=== PATIENT | male | born 1960 | race Caucasian/White ===

== ENCOUNTER 2018-04-08 16:06 | Emergency (ER) | payer BC, SELFPAY ==
[2018-04-08 16:07] VITALS: BP 143/75; PULSE 106; RESP 24; TEMP 36.6; O2SAT 99; BMI 28.5
--- NOTE | 2018-04-08 16:20 | CT_ITS ---
STUDY: CT ABDOMEN AND PELVIS WITH CONTRAST REASON FOR EXAM: Male, 57 years old. Right lower quadrant pain x2 days RADIATION DOSAGE (If Supplied By Facility): CTDIvol = ( 17.45 ) mGy, DLP = ( 1185.35 ) mGycm TECHNIQUE: Transaxial images were obtained from the dome of the diaphragm to the symphysis pubis without oral contrast. 100 ml of Isovue 300 contrast was administered. Sagittal and coronal images were reconstructed. Individualized dose optimization techniques were used for this CT. COMPARISON: None. FINDINGS: The visualized lung bases are unremarkable. The visualized portions of the heart are within normal limits. There is decreased attenuation of the liver consistent with steatosis. Normal gallbladder and extrahepatic biliary system. Normal spleen. Normal pancreas. Normal bilateral adrenal glands. Normal right kidney. Normal left kidney. Normal visualized stomach. Normal small intestine. There are multiple colonic diverticula consistent with diverticulosis. The appendix is visualized and appears normal. Appendix best seen on coronal recon image 65 Normal abdominal aorta. Normal inferior vena cava. Normal retroperitoneum. Normal urinary bladder. Small bilateral inguinal hernias noted. There are diffuse degenerative changes of the visualized lumbar spine. CT/Abdomen/Pelvis W IV Cont ONLY IMPRESSION: Fatty infiltration of liver, no discrete lesion. No CT evidence of an acute inflammatory process, normal appendix visualized. Colonic diverticulosis Electronically Signed: Kaleb Meyer MD at 17:55 EDT , Service support ,
--- NOTE | 2018-04-08 16:23 | ED.DCSUM_ITS ---
- ER Visit Summary Date of Service: 04/08/18 Chief Complaint: Right lower quadrant abdominal pain History of Present Illness: The patient is a 57 M senior past medical history. No prior abdominal surgeries. States last evening he had relatively sudden onset of right lower lateral abdominal pain. He denies any nausea, vomiting or. He denies any fever. No dysuria. No melena. No hematuria. No back pain. Nothing specifically makes the pain better or worse. He denies any prior history of similar pain. He denies any abdominal trauma. Physical Examination: Well-appearing middle-age male. Vital signs are afebrile. H EENT exam unremarkable. Neck nontender. Lungs clear to auscultation. Heart regular rhythm no murmur. Abdomen is soft. Nondistended. Normal bowel sounds. No hernias or masses. The only area that is tender is the right lower quadrant more laterally. Lateral to McBurney's point. Right upper quadrant unremarkable. There is no pulsatile mass. There are no peritoneal signs. Moving all 4 extremities. Neurovascular intact. Back nontender. No CVA tenderness. Neurologically is awake alert with no focal motor deficits. Test Results: CBC normal white count of 9. Normal normal normal creatinine and gap. Liver enzymes normal. Lipase normal. Urinalysis normal no blood no signs of infection. CT abdomen and pelvis with IV contrast only shows no acute abnormality. Fatty liver. Appendix is seen and appears normal this is read by the radiologist and reviewed by me. Multiple repeat exams the patient is doing well. Emergency Department Course and Treatment: Currently the patient does not want anything for pain or nausea. He will be given a liter of normal saline. Treatment Plan: Pain at 1900. Again no peritoneal signs. Patient myself and his all discussed all of his test results are comfortable being discharged home. Disposition: Discharge Impression: Acute right lower quadrant abdominal pain of uncertain etiology This note was generated with [employer] dictation software. It may contain incorrect words, spelling, and punctuation that were not noted in review of the chart prior to signing ED Disposition - Plan for ED Patient: Chief Complaint: Abd Pain Referrals: Care Physician,No Primary [Primary Care Provider] -
[2018-04-08] MEDS: 0.9% Normal Saline 1,000 ML 1000 ML IV (16:30)
[2018-04-08 16:47] LABS: Absolute Lymphocyte Count 2.44 X10^3/ul (0.83-4.51); Absolute Neutrophil Count 5.1 X10^3/uL (2.0-7.7); Basophil# 0.09 X10^3/uL; Eosinophil# 0.23 X10^3/uL; Eosinophils% 2.5 % (0-5); Hematocrit 44.9 % (40-54); Hemoglobin 15.6 g/dl (13.0-16.5); Lymphocyte # 2.44 X10^3/ul (4.0); Lymphocyte % 26.6 % (19-41); Mean Corp Hgb Conc 34.7 g/gl (32-36); Mean Corpuscular Hgb 33.8 pg (27.0-32.0); Mean Corpuscular Volume 97.2 fL (80-94); Mean Platelet Vol. 9.8 fl (6.2-12.0); Monocyte# 1.23 X10^3/uL; Monocyte% 13.4 % (0-10); Neutrophil # 5.13 X10^3/uL (2.7-7.7); Neutrophil % 56.1 % (47-70); Platelet Count 286 K/mm3 (150-450); RBC Distribution Width SD 45.8 fl (35.1-43.9); Red Blood Count 4.62 M/mm3 (4.6-6.2); White Blood Count 9.2 K/mm3 (4.4-11.0)
[2018-04-08 16:48] LABS: POSITIVE COUNT NO; POSITIVE DIFFERENTIAL NO; POSITIVE MORPHOLOGY NO
[2018-04-08 16:56] LABS: AST(SGOT) 16 U/L (15-37); Alanine Aminotransfer ALT/SGPT 43 U/L (16-61); Albumin, Serum 3.2 g/dL (3.2-5.0); Alkaline Phosphatase 115 U/L (45-117); Anion Gap 8 (5-15); BUN 11 mg/dL (7-18); BUN/Creat Ratio 11.5 RATIO (10-20); Bilirubin, Direct 0.09 mg/dL (0.00-0.30); Calcium,Total 8.4 mg/dL (8.5-10.1); Chloride 103 mmol/L (98-107); Creatinine, Serum 0.96 mg/dL (0.70-1.30); EST Glomerular Filtration Rate 86 mL/min (>60); Est Glom Filt Rate - Afr Amer 104 mL/min (>60); Estimated Creatinine Clearance 94.31 ml/min; Globulin 3.9 g/dL (2.2-4.2); Glucose 104 mg/dL (74-106); Lipase 81 U/L (73-393); Potassium 3.6 mmol/L (3.5-5.1); Protein, Total 7.1 g/dL (6.4-8.2); Sodium Level 137 mmol/L (136-145)
[2018-04-08 17:55] LABS: Bacteria 0 SEEN /hpf (None Seen); Mucous, Urine 0 SEEN /hpf (<or=2+); Red Blood Cells-Urine 0 SEEN /hpf (0-5); White Blood Cells 0 SEEN /hpf (0-5)
[2018-04-08 17:58] LABS: Color, Urine Yellow (Yellow); Glucose, Dipstick Normal (Normal); Ketone-Dipstick Negative (Negative); Leukocyte Esterase-Dipstick Negative /ul (Negative); Nitrite-Dipstick Negative (Negative); Occult Blood-Urine Negative /ul (Negative); Protein-Dipstick Negative (Negative); Urine Bilirubin Dipstick Negative (Negative); Urine Clarity Clear (Clear); Urine Urobilinogen Normal (Normal)
[2018-04-08 18:06] VITALS: BP 142/108; PULSE 76; RESP 16; O2SAT 96
[2018-04-08 18:14] LABS: Squamous Epithelial Cells - UA 0-5 SEEN /hpf (0-5)
--- NOTE | 2018-04-08 19:04 | ED.DEP ---
ED Disposition - Plan for ED Patient: Disposition: Home or Assisted Living Chief Complaint: Abd Pain Instructions: ED Abdominal Pain Unkn Cause Referrals: Christian Sue MD [STAFF PHYSICIAN] - 3-5 Days if not improving Additional Instructions: Tylenol and/or Motrin for pain. Return to ER if feeling a lot worse or follow-up with a primary care physician.
[2018-04-08 19:15] VITALS: BP 135/97; PULSE 75; RESP 16; O2SAT 96
== END 2018-04-08 19:16 | disposition home or self-care (01) ==
PROVIDERS: Emergency Provider Emergency Medicine
DX: R10.31 Right lower quadrant pain (principal); K76.0 Fatty (change of) liver, not elsewhere classified; Z72.0 Tobacco use
CPT/HCPCS: 74177; 80048; 80076; 81001; 83690; 85025; 96360; 99283; J7030; Q9967

== ENCOUNTER 2018-04-09 16:11 | Observation (INO) | payer BC, SELFPAY ==
[2018-04-09 16:11] VITALS: BP 140/90; PULSE 105; RESP 18; TEMP 36.8; O2SAT 97
--- NOTE | 2018-04-09 16:35 | RAD_ITS ---
STUDY: X-RAY CHEST REASON FOR EXAM: Male, 57 years old. Right-sided abdominal pain TECHNIQUE: Single AP portable view of the chest. COMPARISON: 2014 FINDINGS: There are interstitial fibrotic changes of the lungs. There is no demonstrated pleural abnormality. Normal size heart. Normal mediastinum and [place]. Normal visualized pulmonary arteries. Normal visualized aortic arch and descending thoracic aorta. Normal visualized thoracic spine. Normal visualized ribs, clavicles, and shoulders. There is no demonstrated abnormality of the visualized soft tissue structures of the upper abdomen. RAD/Chest 1 View (Portable) IMPRESSION: Chronic interstitial changes, no superimposed acute pulmonary process Electronically Signed: Kaleb Meyer MD at 16:44 EDT , Service support ,
[2018-04-09] MEDS: 0.9% Normal Saline 1,000 ML 150 ML IV ×2 (16:43→22:23)
[2018-04-09] MEDS: Ondansetron 4 MG/2 ML Vial IV ×2 (16:43→18:23)
[2018-04-09] MEDS: HYDROmorphone 1 MG/ML Syringe IV ×4 (16:44→22:34)
--- NOTE | 2018-04-09 16:52 | ED.VISSUMM ---
- ER Visit Summary Date of Service: 04/09/18 Chief Complaint: [Abdominal pain] History of Present Illness: The patient is a 57 M [presents the emergency department complaint 3-day history of abdominal discomfort. Patient rates pain currently an 8 or 9 out of 10 and it has been continuous. Patient was seen in the emergency department last evening for the same complaint and had lab workup including CT scan of the abdomen pelvis which was unremarkable. Patient denies any nausea or vomiting. Patient denies any diarrhea. He denies any blood in his stool or black tarry stool. Patient denies urinary symptoms. The pain is pleuritic and worse with movement and deep breathing. Patient has had recent travel over the last several months does work as a ready mix truck driver. Patient also is a heavy smoker. He has no history of PE or DVT.] Patient describes the pain as right midabdomen and at times states that he feels like there is a ball there. Physical Examination: [HEENT-PERRLA, EOMI. Cranial nerves II through XII grossly intact. TMs clear. Mucous membranes moist. No adenopathy. Cardiovascular-regular rate and rhythm without murmur or ectopy Lungs-clear to auscultation, chest wall stable without crepitus or subcu emphysema Abdomen-normoactive bowel sounds, soft. Patient does have tenderness over the right lower rib cage on exam as well as the right oblique musculature. I do not palpate any masses. There is no rebound, rigidity, or perineal signs. Negative Wolfe sign. Extremities-intact ?4, normal range of motion, normal pulses, atraumatic] Test Results: [Chest x-ray obtained was unremarkable.] CBC with differential obtained for white count 9.2, hemoglobin 15, hematocrit 44, platelets 268. Chemistries unremarkable. LFTs normal. Lipase was 78. D-dimer was normal at 0.28. CT scan of the abdomen and pelvis with IV and p.o. contrast was read by radiology as normal appendix and persistent mild to moderate stool in the colon there is a thickened appearance to the section of the distal descending and sigmoid colon which could potentially represent atypical thickening potentially mild colitis. There is diverticulosis but no evidence of diverticulitis. There were degenerative changes of the thoracolumbar spine. And mild thickening of the esophagus. Emergency Department Course and Treatment: [Patient was medicated with Dilaudid and Zofran x3 and patient continues to complain of pain. Treatment Plan: [Admit for pain control] Disposition: [Admit] Impression: [Abdominal pain-etiology uncertain] This note was generated with [employer] dictation software. It may contain incorrect words, spelling, and punctuation that were not noted in review of the chart prior to signing ED Disposition - Plan for ED Patient: Chief Complaint: Abd Pain Referrals: Care Physician,No Primary [Primary Care Provider] -
[2018-04-09 16:53] VITALS: BP 156/88; PULSE 102; RESP 13; O2SAT 95
[2018-04-09 17:05] LABS: Absolute Lymphocyte Count 2.11 X10^3/ul (0.83-4.51); Absolute Neutrophil Count 6.4 X10^3/uL (2.0-7.7); Basophil# 0.06 X10^3/uL; Basophil% 0.7 % (0-1); Eosinophil# 0.08 X10^3/uL; Eosinophils% 0.9 % (0-5); Hematocrit 44.1 % (40-54); Hemoglobin 15.2 g/dl (13.0-16.5); Lymphocyte # 2.11 X10^3/ul (4.0); Lymphocyte % 23.1 % (19-41); Mean Corp Hgb Conc 34.5 g/gl (32-36); Mean Corpuscular Hgb 33.8 pg (27.0-32.0); Mean Platelet Vol. 9.8 fl (6.2-12.0); Monocyte# 0.52 X10^3/uL; Monocyte% 5.7 % (0-10); Neutrophil # 6.35 X10^3/uL (2.7-7.7); Neutrophil % 69.3 % (47-70); Platelet Count 268 K/mm3 (150-450); RBC Distribution Width SD 46.6 fl (35.1-43.9); White Blood Count 9.2 K/mm3 (4.4-11.0)
[2018-04-09 17:06] LABS: POSITIVE COUNT NO; POSITIVE DIFFERENTIAL NO; POSITIVE MORPHOLOGY NO
[2018-04-09 17:20] LABS: ALB/GLOB Ratio 0.8 RATIO (0.9-2.4); AST(SGOT) 17 U/L (15-37); Alanine Aminotransfer ALT/SGPT 43 U/L (16-61); Albumin, Serum 3.1 g/dL (3.2-5.0); Alkaline Phosphatase 105 U/L (45-117); Anion Gap 8 (5-15); BUN 9 mg/dL (7-18); BUN/Creat Ratio 8.5 RATIO (10-20); Calcium,Total 8.2 mg/dL (8.5-10.1); Chloride 105 mmol/L (98-107); Creatinine, Serum 1.06 mg/dL (0.70-1.30); EST Glomerular Filtration Rate 77 mL/min (>60); Est Glom Filt Rate - Afr Amer 93 mL/min (>60); Estimated Creatinine Clearance 85.41 ml/min; Globulin 3.7 g/dL (2.2-4.2); Glucose 148 mg/dL (74-106); Lipase 78 U/L (73-393); Potassium 3.8 mmol/L (3.5-5.1); Protein, Total 6.8 g/dL (6.4-8.2); Sodium Level 137 mmol/L (136-145)
[2018-04-09 17:24] LABS: D-Dimer Quantitative (DVT/PE) 0.28 FEU/ug/m (0.27-0.49)
--- NOTE | 2018-04-09 18:02 | CT_ITS ---
STUDY: CT ABDOMEN AND PELVIS WITH CONTRAST REASON FOR EXAM: Male, 57 years old. Lower quadrant pain for 4 days RADIATION DOSAGE (If Supplied By Facility): CTDIvol = ( 16.41 ) mGy, DLP = ( 1235.59 ) mGycm TECHNIQUE: Transaxial images were obtained from the dome of the diaphragm to the symphysis pubis without oral contrast. 100 ml of Isovue 300 contrast was administered. Sagittal and coronal images were reconstructed. Individualized dose optimization techniques were used for this CT. COMPARISON: April 08, 2018 CT scan abdomen and pelvis FINDINGS: There is trace lower lobe atelectasis. The visualized portions of the heart are within normal limits. There is hepatic steatosis with sparing. There is a 3 mm low attenuation within the left hepatic lobe. There is a low attenuation within the posterior aspect of the right hepatic lobe measuring 8.3 mm. Normal gallbladder and extrahepatic biliary system. Normal spleen. Normal pancreas. Normal bilateral adrenal glands. Normal right kidney. Normal left kidney. There is mild thickening of the distal esophagus. The stomach is distended with food contents. There mildly distended loops of small bowel. There is mild to moderate stool in the colon. There is focal mucosal thickening within the distal descending colon image #101. There is diverticulosis without evidence of diverticulitis. The appendix is retrocecal the tip of the appendix is next to the right kidney. There is no evidence of appendicitis. There is partial calcification of the aorta. Normal inferior vena cava. Normal retroperitoneum. Normal urinary bladder. Normal visualized prostate gland. There are bilateral fatty inguinal hernias. There is multilevel spondylosis. At the level of L4-L5 there is a broad disc bulge mild neural foramina narrowing mild central stenosis. At L5-S1 there is a broad disc osteophyte with mild to moderate neural foraminal narrowing no significant central stenosis. CT/Abdomen/Pelvis WITH Contrast IMPRESSION: There is persistent mild to moderate stool in the colon. There is a thickened appearance of the section of the distal descending/sigmoid colon which could potentially represent atypical thickening potentially mild colitis. There is diverticulosis but without definitive evidence of inflammatory change of the diverticula. Recommend follow-up colonoscopy. Hepatic steatosis benign-appearing hepatic cysts. No evidence of appendicitis. The appendix is retrocecal with the tip near the right kidney. Degenerative change of the thoracolumbar spine. Mild thickening of the esophagus. Consider esophagitis. Electronically Signed: Elle Murrell MD at 19:47 EDT Tel , Service support ,
[2018-04-09 18:27] VITALS: BP 145/93; PULSE 84; RESP 18; O2SAT 96
[2018-04-09 20:06] VITALS: BP 135/97; PULSE 84; RESP 16; O2SAT 97
--- NOTE | 2018-04-09 20:19 | HP.PCM_ITS ---
Problem List (1) Abdominal pain Status: Acute Qualifiers: Abdominal location: right upper quadrant Qualified Code(s): R10.11 - Right upper quadrant pain (2) Tobacco use Status: Chronic (3) Obesity (BMI 30.0-34.9) Status: Chronic History of Present Illness Date of Admission: 04/09/18 Chief Complaint: R sided abd pain The patient is a 57 y/o M w/ PMHx: Tobacco use, Obesity who presents to the [facility] ED on 04/09/18 with history of ongoing R sided abdominal pain without associated nausea, emesis or diarrhea, rated 8-9/10 upon ED presentation, noted to be continuous but worsening since Sunday, notes severe constant, sharp like a stitch in your side from running w/ ED visit the evening prior w/ similar complaints and unremarkable CT A/P at that time. He does note that sometimes the pain is worse w/ deep inspiration and sometimes w/ certain movements. He denies any blood in his stool. He notes continued oral food intake without any worsened symptoms he believes but not best food historian and diet very high in fat. In the ED work-up included T 98.2, heart rate 105-->84, BP 140/90--> 135/97, BC with WBC 9.2, hemoglobin 15.2, platelet 260 without shift, unremarkable d-dimer, CMP with glucose 148 otherwise not marketed appearing, lipase of 78, Chest x-ray with chronic changes, CT A/P without IV contrast w/ trace lower lobe atelectasis, hepatic steatosis with sparing, 3 mm low attenuation within the left hepatic lobe, low-attenuation within the posterior aspect the right hepatic lobe measuring 8.3 mm, normal gallbladder and extra hepatic biliary, persistent mild to moderate stool in the colon, thickened appearance section of the distal descending/sigmoid colon possibly representing atypical thickening potentially mild colitis, diverticulosis without definitive evidence of inflammatory change of the diverticula, mild thickening of the esophagus. In the ED patient certified novell administrator Zofran, morphine, several rounds of Dilaudid in addition to normal saline. Past Medical History Past Medical History (Chronic Problems): Chronic Problems Tobacco use (Chronic) Obesity (BMI 30.0-34.9) (Chronic) Allergies No Known Allergies Allergy (Verified 04/09/18 16:13) Home Medications: Ambulatory Orders Medication Instructions Recorded NK 09/24/18 Surgical History: - - Right knee arthroscopic meniscus repair. Psychiatric History: No pertinent psych hx Lives: Spouse/ Significant Other Smoking Status: Current every day smoker - 1.5-2 pack per day Tobacco Use: Cigarettes Alcohol: None Drugs: None - *Family History Maternal History Items: - - Patient notes a maternal family history of stroke and diabetes. Paternal History Items: - - Patient notes a paternal family history of prostate cancer. Review of Systems Constitutional: Reports: Fatigue. Denies: Chills, Fever, Weight Change HEENT: Denies: Head Aches, Sinus Congestion, Sinus Drainage Cardiovascular: Denies: Chest Pain, Palpitations Respiratory: Reports: Pleuritic Pain. Denies: Cough, Hemoptysis, Shortness of Breath, Shortness of breath at rest, Shortness of breath upon exertion, Sputum production, Wheezing Gastrointestinal: Reports: Abdominal Pain. Denies: Constipation, Diarrhea, Hematemesis, Nausea, Melena, Vomiting Genitourinary: Denies: Dysuria Musculoskeletal: Denies: Joint Pain, Joint Tenderness Skin: Denies: Rash, Wounds Neurological: Denies: Numbness, Tingling, Focal weakness Psychiatric: Denies: Anxiety, Depression, Homicidal Ideations, Suicidal Ideations Hematologic/ Lymphatic: Denies: Easy Bruising, Easy Bleeding VTE Information - Inpt Only VTE Present on Admission: No VTE Mechan Device Prophylaxis: SCD's VTE Pharm Prophylaxis ordered?: Yes Patient Problems: Active and Suspected Problems Abdominal pain (Acute) Subjective: Seated upright in the ED bed, notes ongoing discomfort to the right upper quadrant region. Objective: Physical Examination: General: awake, alert, oriented x 3 and cooperative, seated upright in the ED bed in no apparent distress but uncomfortable appearing. Skin: normal color, turgor, no icterus, cyanosis. HEENT: AT/NC, EOMI, PERRLA, mildly dry MM, no carotid bruits or JVD noted. Lungs: Diffusely diminished breath sounds, greater bilateral bases, poor effort, no rales, ronchi or wheezing. Heart: Regular rate and rhythm; no gallop, rub audible. Abdomen: soft, obese, difficulty with examination as tensing abdominal musculature secondary to discomfort, right upper quadrant pain to palpation, voluntary guarding, difficult to assess rebound, mildly hyperactive bowel sounds, difficult to assess HSM secondary to acute presentation. Extremities: no cyanosis, clubbing, or edema. Neurological: patient awake, alert, oriented x 3; cognitive function intact; pupils equally reactive to light and accomodation; cranial nerves II-XII grossly normal, moving all 4 extremities, no focal deficits, strength moderately globally decreased secondary to acute presentation. Psychiatric: affect appears normal, no acute evidence of depressive or anxiety feelings. - Physical Exam Vital Signs Temp Pulse Resp BP Pulse Ox 98.2 F 84 16 135/97 H 97 04/09/18 16:11 04/09/18 20:06 04/09/18 20:06 04/09/18 20:06 04/09/18 20:06 Oxygen Delivery Method Room Air Weight: 221 lb 9.033 oz Body Mass Index (BMI) 30.0 Laboratory Tests Past 24 Hrs 04/09/18 04/09/18 04/09/18 16:46 16:46 16:46 WBC 9.2 RBC 4.50 L Hgb 15.2 Hct 44.1 MCV 98.0 H MCH 33.8 H MCHC 34.5 RDW 13.0 RDW Differential 46.6 H Plt Count 268 MPV 9.8 Immature Gran % (Auto) 0.300 Neut % (Auto) 69.3 Lymph % (Auto) 23.1 Blaine % (Auto) 5.7 Eos % (Auto) 0.9 Baso % (Auto) 0.7 Absolute Neuts (auto) 6.4 Absolute Lymphs (auto) 2.11 Total Counted Not Reportable D-Dimer Quant (PE/DVT) 0.28 Sodium 137 Potassium 3.8 Chloride 105 Carbon Dioxide 24.0 Anion Gap 8 BUN 9 Creatinine 1.06 Estim Creat Clear Calc 85.41 Est GFR (MDRD) Af Amer 93 Est GFR (MDRD) Non-Af 77 BUN/Creatinine Ratio 8.5 L Glucose 148 H Calcium 8.2 L Total Bilirubin 0.40 AST 17 ALT 43 Alkaline Phosphatase 105 Total Protein 6.8 Albumin 3.1 L Globulin 3.7 Albumin/Globulin Ratio 0.8 L Lipase 78 Assessment/Plan All Active Problems Abdominal pain (Acute) The patient is a 57 y/o M w/ PMHx: Tobacco use, Obesity who presents to the [facility] ED on 04/09/18 with history of ongoing R sided abdominal pain without associated nausea, emesis or diarrhea, rated 8-9/10 upon ED presentation, noted to be continuous but worsening since Sunday, notes severe constant, sharp like a stitch in your side from running w/ ED visit the evening prior w/ similar complaints and unremarkable CT A/P at that time. (1) Atypical Abdominal Pain, RUQ: ED work-up included T 98.2, heart rate 105-->84, BP 140/90--> 135/97, BC with WBC 9.2, hemoglobin 15.2, platelet 260 without shift, unremarkable d-dimer, CMP with glucose 148 otherwise not marketed appearing, lipase of 78, Chest x-ray with chronic changes, CT A/P without IV contrast w/ trace lower lobe atelectasis, hepatic steatosis with sparing, 3 mm low attenuation within the left hepatic lobe, low-attenuation within the p osterior aspect the right hepatic lobe measuring 8.3 mm, normal gallbladder and extra hepatic biliary, persistent mild to moderate stool in the colon, thickened appearance section of the distal descending/sigmoid colon possibly representing atypical thickening potentially mild colitis, diverticulosis without definitive evidence of inflammatory change of the diverticula, mild thickening of the esop hagus. Will admit to [facility], maintain NPO, obtain RUQ US, maintain on IV PPI, hold on abx initiation given atypical presentation, afebrile, no marked WBC elevation or shift, will obtain Surgery consultation, continue PRN oral and IV Pain regimen, PRN antiemetics if onset. (2) Elevated BP without HTN Dx: Denies any history, may be secondary to pain, elevated mild SBP but notable DBP elevations, continue to monitor, add oral agent if remains above goal with pain control. PRN lopressor. (3) Tobacco Abuse: Encouraged cessation, inpatient consultation per RT, NR if desired. (4) Obesity: Weight loss and lifestyle changes encouraged, nutrition consultation for education and teaching given the notable high fat intake of his current diet. (5) Hyperglycemia: Admission glucose 148, HgBA1c pending. (6) GERD, ? Esophagitis: CT without IV contrast noting mild thickening of the esophagus, IV PPI. (7) DVT Prophylaxis: SCDs, lovenox. Code Visit OBSV E&M: [id number] Initial observation care L3
[2018-04-09 21:29] VITALS: BMI 29.9
[2018-04-09 21:50] VITALS: BP 133/92; PULSE 78; RESP 16; TEMP 36.9; O2SAT 95
--- NOTE | 2018-04-09 21:55 | US_ITS ---
STUDY: ABDOMINAL ULTRASOUND - RIGHT UPPER QUADRANT REASON FOR VISIT: Male, 57 years old. Right-sided abdominal pain TECHNIQUE: Ultrasound evaluation of the right upper quadrant was performed with real-time and static seymour-scale imaging. TECHNICAL QUALITY: Adequate. COMPARISON: CT scan abdomen and pelvis and April 09, 2018, April 08, 2018. FINDINGS: Liver: The liver measures 19.2 cm. There is increased echogenicity consistent with fatty infiltration. The bile ducts are within normal limits. There is hepatic color flow. The direction of portal flow is hepatopetal. There is no demonstrated mass lesion. Gallbladder: Normal distended gallbladder. The gallbladder wall measures 2 mm. There is a negative sonographic Wolfe's sign. There is no pericholecystic fluid. There are no gallstones. Common Bile Duct (C.B.D.): The common bile duct measures 5 mm. Pancreas: Normal size of the head, body of the pancreas. There is normal echogenicity of the pancreas. There is no demonstrated pancreatic mass or cyst. The tail the pancreas is not visualized. Right Kidney: Normal size of the right kidney. The right kidney measures 12.7 x 5.1 x 4.5 cm. Normal renal cortex. The right cortex measures 2 cm. There is no demonstrated renal mass or cyst. There is no right hydronephrosis. US/Gallbladder IMPRESSION: Hepatic steatosis. Hepatic enlargement.. The too small to characterize probable liver cysts seen on today's CT are not well seen on ultrasound. These measure 3 and 8 mm. No evidence of cholelithiasis or findings to suggest cholecystitis. Electronically Signed: Elle Murrell MD at 23:49 EDT Tel , Service support ,
[2018-04-09] MEDS: 0.9% NaCl Peripheral Flush Adult/Peds IV (22:34)
[2018-04-09 23:25] VITALS: O2SAT 93
[2018-04-09] MEDS: oxyCODONE 5 MG Tablet PO (23:32)
[2018-04-10] VITALS (11 sets, daily range): BP systolic 90–136; BP diastolic 51–95; PULSE 68–81; RESP 16–18; TEMP 36.3–37.1; O2SAT 84–98; BMI 29.9
[2018-04-10] MEDS: 0.9% Normal Saline 1,000 ML 150 ML IV ×4 (05:44→23:55)
[2018-04-10] MEDS: HYDROmorphone 1 MG/ML Syringe IV (05:50)
[2018-04-10] MEDS: Ketorolac 30 MG/ML Syringe IV (06:15)
[2018-04-10] MEDS: Acetaminophen 325 MG Tablet 650 MG PO (06:16)
[2018-04-10 06:17] LABS: Absolute Lymphocyte Count 2.26 X10^3/ul (0.83-4.51); Absolute Neutrophil Count 4.7 X10^3/uL (2.0-7.7); Basophil# 0.09 X10^3/uL; Basophil% 1.1 % (0-1); Eosinophil# 0.16 X10^3/uL; Hematocrit 40.8 % (40-54); Hemoglobin 13.8 g/dl (13.0-16.5); Lymphocyte # 2.26 X10^3/ul (4.0); Lymphocyte % 28.1 % (19-41); Mean Corp Hgb Conc 33.8 g/gl (32-36); Mean Corpuscular Hgb 33.2 pg (27.0-32.0); Mean Corpuscular Volume 98.1 fL (80-94); Mean Platelet Vol. 9.5 fl (6.2-12.0); Neutrophil # 4.71 X10^3/uL (2.7-7.7); Neutrophil % 58.6 % (47-70); Platelet Count 238 K/mm3 (150-450); RBC Distribution Width SD 46.3 fl (35.1-43.9); Red Blood Count 4.16 M/mm3 (4.6-6.2)
[2018-04-10 06:21] LABS: POSITIVE COUNT NO; POSITIVE DIFFERENTIAL NO; POSITIVE MORPHOLOGY NO
[2018-04-10 06:39] LABS: Anion Gap 5 (5-15); BUN 10 mg/dL (7-18); BUN/Creat Ratio 10.8 RATIO (10-20); Calcium,Total 7.8 mg/dL (8.5-10.1); Chloride 104 mmol/L (98-107); Creatinine, Serum 0.92 mg/dL (0.70-1.30); EST Glomerular Filtration Rate 90 mL/min (>60); Est Glom Filt Rate - Afr Amer 109 mL/min (>60); Estimated Creatinine Clearance 98.41 ml/min; Glucose 98 mg/dL (74-106); Potassium 3.9 mmol/L (3.5-5.1); Sodium Level 137 mmol/L (136-145)
--- NOTE | 2018-04-10 13:29 | NURSING ---
report called to aC at this time.
--- NOTE | 2018-04-10 14:00 | IMM_PTH ---
PATIENT: SHELLEY NAYAK LOC: 3 U#:[id number] AGE/SX: 57/M ROOM: CA323 RE04/09/[address]: Dr. Rafael Ramirez DO : 1960 BED: 1 DIS: 04/11/2018 SPEC #: [id number] RECD: 04/11/18 14:38 STATUS: SOUMiguel Angel REQ #: [id number] KARLIE: 04/10/18 14:[address]: Donovan Peck DEPT: IMMUNOHISTOCHEMISTRY RECD BY: Mary Ann Cain ENTERED: 04/11/18 14:39 SP TYPE: IMMUNO OTHR DR: MD Dr. Rafael Salinas DO Dr. Richard Guttman, MD No Primary Care Phys Tissues: B - Stomach, NOS C - Stomach, NOS D - Esophageal mucous membrane Procedures: H Pylori (initial) P53 (initial) BCL-2 (add) BCL-6 (add) CD10 (add) CD20 (add) CD23 (add) CD3 (add) CD43 (add) CD45 (add) CD5 (add) CD79A (add) CYCLIN (add) KI-67 (add) Comments: @ Ordering doctor for H.PYLORI edited from to @ by MONA at 04/11/18 1451 @ Submitting doctor edited from to @ by MONA at 04/11/18 1458 PHYSICIAN & INSTITUTION [facility] [address] [place] [id number] SPECIMEN INFORMATION: Tissue Source: B - Antrum biopsy, C - Gastric polyp, D - GE junction Clinical Info: Abdomen pain Specimen Number: [id number] B, C & D CPT code: 33517 x3, 11563 x12 METHODOLOGY: Deparaffinized sections of prefer/formalin-fixed tissue or PAP/DQ stained slides are incubated with monoclonal/polyclonal antibodies/oligonucleotide probes. Localization is made via biotin free immunoperoxidase method. Appropriate controls are performed and reacted as expected. Results on target cell population are indicated in the following table: RESULTS: ANTIBODY / CLONE RESULT Block B H Pylori (polyclonal) negative Block C CD3 (PS1) positive CD5 (SP10) positive CD20 (L26) positive CD43 (L60) positive CD45 (RP2/18) positive CD79a (11E3) positive CD10 (56C6) negative CD23 (1B12) negative (positive in germinal center) BCL-2 (bcl-2/100/D5) positive BCL-6 (AW082U/A8) negative Cyclin D1/BCL-1 (SP4) negative Ki-67 (30-9) positive, moderate H Pylori (polyclonal) negative Block D P53 (DO-7) negative These tests were developed and their performance characteristics determined by [facility]. They may not have been cleared or approved by the U.S. Food and Drug Administration. The FDA has determined that such clearance or approval is not necessary. INTERPRETATION: B. Antrum biopsy: Negative for Helicobacter pylori organisms. C. Gastric polyp: Lymphoid aggregate, polytypic in nature, favor benign. Negative for Helicobacter pylori organisms. D. GE junction: Indefinite for dysplasia. SJ:rey 04/15/18
--- NOTE | 2018-04-10 14:00 | EGD_PTH ---
PATIENT: SHELLEY NAYAK LOC: MS3 U#:[id number] AGE/SX: 57/M ROOM: MO323 RE04/09/[address]: Dr. Rafael Ramirez DO : 1960 BED: 1 DIS: 04/11/2018 SPEC #: [id number] RECD: 04/11/18 11:14 STATUS: QUINTIN REMorro #: [id number] KARLIE: 04/10/18 14:[address]: Donovan Peck DEPT: SURGICAL PATHOLOGY RECD BY: Trinity Chino ENTERED: 04/11/18 11:46 SP TYPE: EGD [facility]OPSY [facility] DR: MD Dr. Rafael Salinas, DO No Primary Care Phys Tissues: A - Duodenum, NOS B - Gastric mucous membrane C - Gastric mucous membrane D - Gastric mucous membrane Procedures: Special Stain Group II Surgery Specimen Level IV Alcian Blue/PAS (control) HEADER OPERATION: EGD ([facility]) PRE-OP DIAGNOSIS: Abdominal pain TISSUE SUBMITTED: A. Duodenum biopsy, B. Antrum biopsy, C. Gastric polyp, rule out inflammatory polyp, D. GE junction, rule out Slater's MICROSCOPIC DIAGNOSIS A. Duodenum, biopsy: A fragment of duodenal mucosa with Vadim gland hyperplasia. B. Antrum, biopsy: Mild gastritis. C. Gastric polyp, biopsy: Mild gastritis. Lymphoid aggregates, polytypic in nature, favor benign. See comment. D. 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 Indefinite for dysplasia. See comment. SJ:rg 04/12/18 COMMENT B. The results of immunohistochemistry for Helicobacter pylori will be reported separately ([id number]). C. The results of immunohistochemistry for Helicobacter pylori will be reported separately ([id number]). D. Immunohistochemistry ([id number]) supports the above diagnosis. Alcian blue/PAS stain with matched control is used in the evaluation of the specimen. MICROSCOPIC DESCRIPTION Slides are reviewed. B. The specimen shows fragments of gastric mucosa with chronic inflammatory cell infiltrates in the lamina propria consisting of lymphocytes and plasma cells, consistent with mild chronic gastritis. C. The specimen shows fragments of gastric mucosa with chronic inflammatory cell infiltrates in the lamina propria consisting of lymphocytes and plasma cells, consistent with mild chronic gastritis. Multiple lymphoid aggregates are noted. Immunohistochemistry ([id number]) shows lymphoid aggregates to be polytypic in nature, favor benign. GROSS DESCRIPTION A - Received in fixative is one container labeled with the patient's name and designated duodenum biopsy. The specimen consists of one irregular fragment of light angel soft tissue that measures 0.3 x 0.3 x 0.1 cm. The specimen is totally submitted in one cassette. B - Received in fixative is one container labeled with the patient's name and designated antrum biopsy. The specimen consists of one irregular fragment of light angel soft tissue that measures 0.4 x 0.4 x 0.1 cm. The specimen is totally submitted in one cassette. C - Received in fixative is one container labeled with the patient's name and designated gastric polyp. The specimen consists of one irregular fragment of light angel soft tissue that measures 0.3 x 0.3 x 0.1 cm. The specimen is totally submitted in one cassette. D - Received in fixative is one container labeled with the patient's name and designated GE junction biopsy. The specimen consists of one irregular fragment of light angel soft tissue that measures 0.4 x 0.2 x 0.1 cm. The specimen is totally submitted in one cassette. / SJ:rg 04/11/18 TC:3 [facility]: [id number] x4, [id number]
--- NOTE | 2018-04-10 15:00 | CON.PCM_ITS ---
Reason for Consult Date of Consultation: 04/10/18 History of Present Illness: The patient is a 57 year old M with right upper quadrant/lateral abdomen pain. The pain was constant and severe, non radiating, not seemingly started after eating or any other inciting events. The pain started Sunday night. he did not feel the pain was related to eating food, but the pain occurred hours after eating at [employer] - a meal which consisted of a submarine sandwich and fried mushrooms. the pain persisted over the weekend. He presented to the emergency department on the evening of April 09. Pain was persistently severe. the pain was not truly localized under the right costal margin, but more laterally. He complains of no radiation of the back or shoulder. He had laboratory studies which were unremarkable. he underwent a CT scan of the abdomen and pelvis which was unremarkable in the hepatobiliary area. there were felt to be areas of thickening in the distal esophagus and there were felt to be areas of thickening in the sigmoid colon. He had an ultrasound of the right upper quadrant, which was unremarkable. the patient smokes over 1 pack of cigarettes per day. Past Medical History Past Medical History (Chronic Problems): Chronic Problems Tobacco use (Chronic) Obesity (BMI 30.0-34.9) (Chronic) Allergies No Known Allergies Allergy (Verified 04/09/18 16:13) Home Medications: Ambulatory Orders Medication Instructions Recorded Aspirin/Acetaminophen/Caffeine 1 each PO DAILY PRN 04/09/18 [[employer] Ex-Str Powder Packet] Cyclobenzaprine [Flexeril] 5 mg PO TID PRN PRN 04/09/18 Ibuprofen [Advil] 200 mg PO Q6H PRN PRN 04/09/18 Surgical History: - - Right knee arthroscopic meniscus repair. Psychiatric History: No pertinent psych hx Lives: Spouse/ Significant Other Smoking Status: Current every day smoker Tobacco Use: Cigarettes Alcohol: None Drugs: None - *Family History Maternal History Items: - - Patient notes a maternal family history of stroke and diabetes. Paternal History Items: - - Patient notes a paternal family history of prostate cancer. Review of Systems Constitutional: Denies: Chills, Fever, Weight Change HEENT: Denies: Head Aches, Sinus Congestion, Sinus Drainage Cardiovascular: Denies: Chest Pain, Palpitations Respiratory: Denies: Cough, Shortness of breath at rest, Sputum production Gastrointestinal: Reports: Abdominal Pain. Denies: Nausea, Vomiting Genitourinary: Denies: Dysuria Musculoskeletal: Denies: Joint Pain, Joint Tenderness Skin: Denies: Rash, Wounds Neurological: Denies: Numbness, Tingling, Focal weakness Psychiatric: Denies: Anxiety, Depression, Homicidal Ideations, Suicidal Ideations Hematologic/ Lymphatic: Denies: Easy Bruising, Easy Bleeding Patient Problems: Active and Suspected Problems Abdominal pain (Acute) - Physical Exam General: Alert, Oriented x3, Cooperative HEENT: Atraumatic, PERRLA, EOMI, Normocephalic Neck: Supple, No JVD, Negative Carotid Bruits Lungs: Clear to auscultation, Normal air movement Cardiovascular: Regular rate, No murmurs Abdomen: Bowel Sounds Present, Soft, Non Tender - in the right upper quadrant- relative point tenderness in the far right lateral abdominal wall area. Negative Wolfe sign Extremities: No edema, Capillary Refill Less than 3 Seconds Skin: No rashes, No breakdown Musculoskeletal: No Tenderness to Palpation of Joints or Extremities Neurological: Cranial nerves II-XII grossly intact Psych/Mental Status: Normal Affect, Appropriate Vital Signs Temp Pulse Resp BP Pulse Ox 97.6 F L 72 18 132/83 H 97 04/10/18 13:06 04/10/18 13:06 04/10/18 13:06 04/10/18 13:06 04/10/18 13:06 Oxygen Delivery Method Room Air Weight: 100.4 kg Body Mass Index (BMI) 29.9 Intake and Output for Last 24 Hours 04/08/18 04/09/18 04/10/18 23:59 23:59 23:59 Intake Total 2320 / 2320 Output Total 930 / 930 Balance 1390 / 1390 Laboratory Tests Past 24 Hrs 04/09/18 04/09/18 04/09/18 16:46 16:46 16:46 WBC 9.2 RBC 4.50 L Hgb 15.2 Hct 44.1 MCV 98.0 H MCH 33.8 H MCHC 34.5 RDW 13.0 RDW Differential 46.6 H Plt Count 268 MPV 9.8 Immature Gran % (Auto) 0.300 Neut % (Auto) 69.3 Lymph % (Auto) 23.1 [place] % (Auto) 5.7 Eos % (Auto) 0.9 Baso % (Auto) 0.7 Absolute Neuts (auto) 6.4 Absolute Lymphs (auto) 2.11 Total Counted Not Reportable D-Dimer Quant (PE/DVT) 0.28 Sodium 137 Potassium 3.8 Chloride 105 Carbon Dioxide 24.0 Anion Gap 8 BUN 9 Creatinine 1.06 Estim Creat Clear Calc 85.41 Est GFR (MDRD) Af Amer 93 Est GFR (MDRD) Non-Af 77 BUN/Creatinine Ratio 8.5 L Glucose 148 H Calcium 8.2 L Total Bilirubin 0.40 AST 17 ALT 43 Alkaline Phosphatase 105 Total Protein 6.8 Albumin 3.1 L Globulin 3.7 Albumin/Globulin Ratio 0.8 L Lipase 78 04/10/18 04/10/18 05:50 05:50 WBC 8.0 RBC 4.16 L Hgb 13.8 Hct 40.8 MCV 98.1 H MCH 33.2 H MCHC 33.8 RDW 13.0 RDW Differential 46.3 H Plt Count 238 MPV 9.5 Immature Gran % (Auto) 0.200 Neut % (Auto) 58.6 Lymph % (Auto) 28.1 Gooding % (Auto) 10.0 Eos % (Auto) 2.0 Baso % (Auto) 1.1 H Absolute Neuts (auto) 4.7 Absolute Lymphs (auto) 2.26 Total Counted Not Reportable D-Dimer Quant (PE/DVT) Sodium 137 Potassium 3.9 Chloride 104 Carbon Dioxide 28.0 Anion Gap 5 BUN 10 Creatinine 0.92 Estim Creat Clear Calc 98.41 Est GFR (MDRD) Af Amer 109 Est GFR (MDRD) Non-Af 90 BUN/Creatinine Ratio 10.8 Glucose 98 Calcium 7.8 L Total Bilirubin AST ALT Alkaline Phosphatase Total Protein Albumin Globulin Albumin/Globulin Ratio Lipase Assessment/Plan All Active Problems Abdominal pain (Acute) abdominal pain-right lateral abdominal area, unremarkable CT scan and ultrasound I plan to perform upper endoscopy. The patient understands the risks, benefits, complications, and possible alternatives to the procedure. If this is unremarkable, we'll plan to obtain a HIDA scan with ejection fraction.
--- NOTE | 2018-04-10 15:26 | OP.ENDO_ITS ---
Patient Name: Lawson Yi Procedure Date: 04/10/2018 2:51 PM Date of : 1960 Age: 57 Procedure: Upper GI endoscopy Indications: Abdominal pain in the right upper quadrant Providers: Donovan Peck MD Medicines: Monitored Anesthesia Care Patient Profile: This is a 57 year old male. Refer to note in patient chart for documentation of history and physical. Complications: No immediate complications. Procedure: Pre-Anesthesia Assessment: - Prior to the procedure, a History and Physical was performed, and patient medications and allergies were reviewed. The patient is competent. The risks and benefits of the procedure and the sedation options and risks were discussed with the patient. All questions were answered and informed consent was obtained. Patient identification and proposed procedure were verified by the physician, the nurse and the oil gas and pipe tester in the procedure room. Mental Status Examination: alert and oriented. Airway Examination: normal oropharyngeal airway and neck mobility. Respiratory Examination: clear to auscultation. CV Examination: normal. Prophylactic Antibiotics: The patient does not require prophylactic antibiotics. Prior Anticoagulants: The patient has taken no previous anticoagulant or antiplatelet agents. ASA Grade Assessment: II - A patient with mild systemic disease. After reviewing the risks and benefits, the patient was deemed in satisfactory condition to undergo the procedure. The anesthesia plan was to use monitored anesthesia care (MAC). Immediately prior to administration of medications, the patient was re-assessed for adequacy to receive sedatives. The heart rate, respiratory rate, oxygen saturations, blood pressure, adequacy of pulmonary ventilation, and response to care were monitored throughout the procedure. The physical status of the patient was re-assessed after the procedure. After obtaining informed consent, the endoscope was passed under direct vision. Throughout the procedure, the patient's blood pressure, pulse, and oxygen saturations were monitored continuously. The gastroscope was introduced through the mouth, and advanced to the jejunum. The upper GI endoscopy was accomplished without difficulty. The patient tolerated the procedure well. Scope In: 3:10:19 PM Scope Out: 3:19:17 PM Total Procedure Duration Time 0 hours 8 minutes 58 seconds Findings: The examined jejunum was normal. Patchy moderately erythematous mucosa without active bleeding and with no stigmata of bleeding was found in the duodenal bulb. Biopsies were taken with a cold forceps for histology. Scattered moderate inflammation characterized by erosions, erythema, friability and granularity was found in the gastric antrum. Biopsies were taken with a cold forceps for Helicobacter pylori testing using PyloriTek test. Multiple small sessile polyps with no stigmata of recent bleeding were found in the gastric body. Biopsies were taken with a cold forceps for histology. Inflammation was found in the gastric antrum. Biopsies were taken with a cold forceps for histology. A small hiatal hernia was present. Mildly severe esophagitis with no bleeding was found. Multiple areas of ectopic gastric mucosa were found in the upper third of the esophagus. Impression: - Normal examined jejunum. - Erythematous duodenopathy. Biopsied. - Gastritis. Biopsied. - Multiple gastric polyps. Biopsied. - Gastritis. Biopsied. - Small hiatal hernia. - Mildly severe reflux esophagitis. Rule out Slater's esophagus. - Ectopic gastric mucosa in the upper third of the esophagus. Recommendation: - Await pathology results. - Use Prilosec (omeprazole) 40 mg PO BID. - Continue present medications. Procedure Code(s): --- Professional --- 82800, Esophagogastroduodenoscopy, flexible, transoral; with biopsy, single or multiple CPT copyright 2017 [employer]. All rights reserved. The codes documented in this report are preliminary and upon hcc coders review may be revised to meet current compliance requirements. Donovan Peck MD 04/10/2018 3:26:04 PM This report has been signed electronically. Number of Addenda: 0 Note Initiated On: 04/10/2018 2:51 PM
--- NOTE | 2018-04-10 18:14 | NURSING ---
pt ate [employer] for supper. pt had cheeseburgers and chili.
--- NOTE | 2018-04-10 18:17 | PCM.PROGNOTE ---
Patient Problems: Active and Suspected Problems Abdominal pain (Acute) Subjective: Patient was seen and examined tonight, his was present in the room. Patient is having some right upper quadrant abdominal pain, he just finished eating hamburgers. I have reviewed general surgery's EGD report from today and the patient had antral gastritis, duodenitis, along with some reflux esophagitis and some small gastric polyps. Patient is scheduled for a HIDA scan tomorrow - Physical Exam General: Alert, Oriented x3, Cooperative, Well developed, Well nourished HEENT: Atraumatic, PERRLA, EOMI, Normocephalic Oral: Moist Mucosa Neck: Supple, No Nuchal Rigidity, Trachea Midline, Thyroid Normal Size and Texture Lungs: Clear to auscultation, Normal air movement, No rhonchi, No wheeze, No rales Cardiovascular: Regular rate, Regular Rhythm, Normal S1, Normal S2, No murmurs, No Ectopic Activity, PMI Normal, No rub noted, No Gallop Abdomen: Bowel Sounds Present, Soft, Non-Distended, Tender - Patient has right upper quadrant abdominal tenderness to palpation at this time, No hernias noted Extremities: No clubbing, No cyanosis, No edema, Capillary Refill Less than 3 Seconds Skin: No rashes, No breakdown Musculoskeletal: No Tenderness to Palpation of Joints or Extremities Neurological: Cranial nerves II-XII grossly intact, Neuro grossly intact, Sensory exam intact to light touch and pain, Coordination normal Psych/Mental Status: Normal Affect, Appropriate, Alert and oriented to time, place, person, mood and affect Vital Signs Temp Pulse Resp BP Pulse Ox 97.4 F L 77 18 131/87 H 97 04/10/18 16:11 04/10/18 16:11 04/10/18 16:11 04/10/18 16:11 04/10/18 16:11 Oxygen Delivery Method Room Air Weight: 100.4 kg Body Mass Index (BMI) 29.9 Intake and Output for Last 24 Hours 04/08/18 04/09/18 04/10/18 23:59 23:59 23:59 Intake Total 3020 / 3020 Output Total 930 / 930 Balance 2089 / 2089 Laboratory Tests Past 24 Hrs 04/10/18 04/10/18 05:50 05:50 WBC 8.0 RBC 4.16 L Hgb 13.8 Hct 40.8 MCV 98.1 H MCH 33.2 H MCHC 33.8 RDW 13.0 RDW Differential 46.3 H Plt Count 238 MPV 9.5 Immature Gran % (Auto) 0.200 Neut % (Auto) 58.6 Lymph % (Auto) 28.1 [place] % (Auto) 10.0 Eos % (Auto) 2.0 Baso % (Auto) 1.1 H Absolute Neuts (auto) 4.7 Absolute Lymphs (auto) 2.26 Total Counted Not Reportable Sodium 137 Potassium 3.9 Chloride 104 Carbon Dioxide 28.0 Anion Gap 5 BUN 10 Creatinine 0.92 Estim Creat Clear Calc 98.41 Est GFR (MDRD) Af Amer 109 Est GFR (MDRD) Non-Af 90 BUN/Creatinine Ratio 10.8 Glucose 98 Calcium 7.8 L Medical Necessity - Tobacco Use Smoking Status: Current every day smoker Tobacco Use: Cigarettes Assessment/Plan All Active Problems Abdominal pain (Acute) #1 right upper quadrant abdominal pain-made worse this afternoon after the patient had a meal of hamburger, patient will have a HIDA scan tomorrow, general surgery is seeing the patient #2 antral gastritis-continue PPI #3 reflux esophagitis-continue PPI #4 duodenitis-continue PPI #5 gastric polyps-these were removed Code Visit OBSV E&M: 81279 Subsequent observation care L2
[2018-04-10] MEDS: oxyCODONE 5 MG Tablet PO ×2 (18:30→23:56)
--- NOTE | 2018-04-10 18:35 | NURSING ---
After eating food from [employer], pt complaining of pain. Rating pain as an 8 out of 10. This nurse gave pt Oxyir and instructed him to use the call light the next time he needed to get up.
[2018-04-11 03:16] VITALS: BP 116/69; PULSE 69; RESP 18; TEMP 36.5; O2SAT 96
[2018-04-11] MEDS: 0.9% Normal Saline 1,000 ML 150 ML IV (06:04)
--- NOTE | 2018-04-11 08:00 | NM_ITS ---
CLINICAL: 57-year-old male with reported history of abdominal pain and nausea. RADIONUCLIDE HEPATOBILIARY SCINTIGRAPHY COMPARISON: Abdominal ultrasound report 04/09/2018, CT of the abdomen-pelvis report 04/09/2018 FINDINGS: Following the intravenous administration of 5.4 mCi of 99m Tc Mebrofenin, hepatobiliary images reveal: 1. Relatively prompt and homogeneous radiopharmaceutical concentration is noted by a normal sized liver. No parenchymal defects are identified. 2. Gallbladder activity is identified at 30 minutes post radiopharmaceutical administration. 3. Small intestinal tract is observed at 15 minutes following tracer injection. 4. Washout of the radiopharmaceutical by the hepatic parenchyma appears qualitatively normal. The patient was administered a fatty meal (8 ounces BOOST-30 grams fat). The post fatty meal consumption gallbladder ejection fraction calculated at 31 minutes was noted to be 61.0 % (normal greater than 30% at 60 minutes). NM/Hepatobilliary Img w/Pharm Int IMPRESSION: 1. NORMAL 99m Tc Mebrofenin hepatobiliary imaging examination with fatty meal ingestion. A. A gallbladder ejection fraction calculated to be greater than 30% following the administration of a consumed fatty meal makes the probability of functional hepatobiliary disease (gallbladder and/or sphincter of Oddi dyskinesia) and/or organic hepatobiliary disease (chronic acalculous cholecystitis and/or cystic duct syndrome) to be low. (Ai and Mark, J Nucl Med 43: 1603, 2002). Electronically Signed: Donovan Craig DO at 12:17 EDT Tel , Service support ,
[2018-04-11 08:25] VITALS: O2SAT 93
[2018-04-11 08:35] VITALS: BP 123/86; PULSE 66; RESP 18; TEMP 36.6; O2SAT 97
[2018-04-11] MEDS: 0.9% NaCl Peripheral Flush Adult/Peds IV (10:44)
[2018-04-11] MEDS: HYDROmorphone 1 MG/ML Syringe IV (10:44)
[2018-04-11 14:15] VITALS: BP 132/75; PULSE 68; RESP 14; TEMP 36.4; O2SAT 98
[2018-04-11] MEDS: oxyCODONE 5 MG Tablet PO (15:25)
--- NOTE | 2018-04-11 15:41 | DCINST_ITS ---
- Discharge Diagnoses Current Active Problems: Current Active and Chronic Problems Tobacco use (Chronic) Obesity (BMI 30.0-34.9) (Chronic) Abdominal pain (Acute) You will use the following diet at home:: No restrictions Your food should be the consistency of: Regular Your liquids should be the consistency of: Regular/Thin Discharge Activity: Return to Normal Activity Return to work on:: 04/15/18 Weight Bearing Status: Full weight bearing Instructions: HIDA Scan, Upper GI Endoscopy with Biopsy Allergies/Adverse Reactions: Allergies No Known Allergies Allergy (Verified 04/09/18 16:13) Medications to take at Discharge Cyclobenzaprine [Flexeril] 5 mg PO TID PRN PRN 04/09/18 Ibuprofen [Motrin] 200 mg PO Q6H PRN PRN 04/09/18 Pantoprazole Sodium [Protonix] 40 mg PO BID #60 tablet 04/11/18 The following prescriptions were given: Pantoprazole Sodium [Protonix] 40 mg PO BID #60 tablet Primary Care Physician: Care Physician,No Primary [Primary Care Provider] - Test Results: Test results from this visit will be discussed in further detail at your follow- up appointment, if applicable. Please Follow Up With: Donovan Peck MD When: Sunday
--- NOTE | 2018-04-11 17:54 | DS.PCM_ITS ---
Discharge Date and Diagnosis Date of Admission: 04/09/18 Date of Discharge: 04/11/18 - Primary Discharge Diagnosis #1 antral gastritis #2 reflux esophagitis #3 duodenitis #4 gastric polyps - Secondary Discharge Diagnosis Chronic Problems Tobacco use (Chronic) Obesity (BMI 30.0-34.9) (Chronic) Hospital Course and Treatment Operations: None Procedures: EGD, - - HIDA scan Summary of Care Provided: The patient is a 57 year old M who was seen in the emergency room at [facility] with a history of abdominal discomfort times 3 days. Workup in the emergency room included a chest x-ray which was unremarkable, CBC was obtained and his white blood cell count was 9.2, chemistries were unremarkable, LFTs were normal, lipase was 78. CT scan of the abdomen and pelvis with IV and p.o. contrast indicated the possibility of mild colitis in the descending and sigmoid colon. No evidence of diverticulitis was noted. Patient was medicated with Dilaudid and Zofran, hospitalist service placed the patient into observation status on [facility] 3, he was seen in consultation by general surgery who performed an EGD the next day which showed duodenitis, esophagitis, and antral gastritis. Patient was treated with IV PPI and fluids, he then underwent a HIDA scan the following day which showed no evidence of gallbladder dysfunction. On 04/11/18, patient was seen and examined: HEENT-thyroid appears normal, head is normocephalic, no JVD. Lungs: Lungs are clear to auscultation apex to base bilaterally, no rales rhonchi or wheezes are noted. Heart: Heart rate and rhythm is regular, no ectopic beats were noted, no murmurs were noted. Abdomen: Abdomen is soft, nontender, bowel sounds are present in all 4 quadrants, no rebound abdominal tenderness was noted. Neuro: Cranial nerves II through XII are grossly intact, no focal motor deficits were noted, coordination normal. Psych: Patient is alert and oriented x3, he does not appear depressed or anxious. Patient was discharged in stable condition on 04/11/18, he is to follow-up with Dr. Julian as an outpatient, prescriptions were provided for the patient for PPI. I also talked to the patient briefly about smoking cessation, patient understands the risks of smoking and he does not want to stop smoking. Discharge Activity: Return to Normal Activity Return to work on:: 04/15/18 Weight Bearing Status: Full weight bearing Home Medications: Medications to take at Discharge Cyclobenzaprine [Flexeril] 5 mg PO TID PRN PRN 04/09/18 Ibuprofen [Motrin] 200 mg PO Q6H PRN PRN 04/09/18 Pantoprazole Sodium [Protonix] 40 mg PO BID #60 tablet 04/11/18 Following Prescrptions Were Given to Patient: Pantoprazole Sodium [Protonix] 40 mg PO BID #60 tablet Primary Care Physician: Care Physician,No Primary [Primary Care Provider] - Please Follow Up With: Donovan Peck MD When: Sunday Patient Instructions: HIDA Scan, Upper GI Endoscopy with Biopsy Disposition: Home Minutes spent on discharge:: 32 Patient Condition:: Stable Medical Necessity - Tobacco Use Smoking Status: Current every day smoker Tobacco Use: Cigarettes Meaningful Use Info Meaningful Use Diagnoses (Choose all that apply): None applicable Code Visit OBSV E&M: 37079 Observation care discharge
== END 2018-04-11 16:07 | disposition home or self-care (01) ==
LOC: ED 16:47 → MS3 20:57
PROVIDERS: Surgery; Admitting Provider Family Medicine; Emergency Provider Emergency Medicine; Visit Provider Internal Medicine
PROC: 0DJ08ZZ Inspection of Upper Intestinal Tract, Via Natural or Artificial Opening Endoscopic (ICD-10-PCS; CPT 43235; principal; 2018-04-10 13:55)
DX: K29.50 Unspecified chronic gastritis without bleeding (principal); K21.0 Gastro-esophageal reflux disease with esophagitis; K31.7 Polyp of stomach and duodenum; R59.9 Enlarged lymph nodes, unspecified; E66.9 Obesity, unspecified; Z68.30 Body mass index [BMI] 30.0-30.9, adult; Z71.3 Dietary counseling and surveillance; F17.210 Nicotine dependence, cigarettes, uncomplicated; K44.9 Diaphragmatic hernia without obstruction or gangrene; R03.0 Elevated blood-pressure reading, without diagnosis of hypertension
CPT/HCPCS: 43239; 36415; 71045; 74177; 76705; 78227; 80048; 80053; 83690; 85025; 85379; 88305; 88313; 88341; 88342; 96361; 96365; 96366; 96375; 96376; 97802; 99218; 99283; 99406; A9537; J7030; Q9967; A4216; G0378; J2405

== ENCOUNTER 2018-05-27 07:44 | Emergency (ER) | payer BC, SELFPAY ==
[2018-05-27 07:46] VITALS: BP 140/84; PULSE 103; RESP 17; TEMP 37.1; O2SAT 96; BMI 29.9
--- NOTE | 2018-05-27 08:25 | ED.VISSUMM ---
- ER Visit Summary Date of Service: 05/27/18 Chief Complaint: Right paraspinal and right flank pain History of Present Illness: The patient is a 57 M has had this pain intermittently for the last month. He is had extensive workup including 2 CTs, HIDA scan and upper and lower endoscopy showing polyps. No evidence of a specific cause for his pain. 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 The pain returned gradually on Sunday and is gotten worse the last 2 days. There is no associated fever. No nausea, vomiting, diarrhea or constipation. No hematuria or dysuria. Pain is worse with movement. He denies any trauma. He has never had any back history of surgery. Physical Examination: Vital signs are stable afebrile. Initial blood pressure 140/84. He is in no distress. HEENT exam unremarkable. Neck nontender no lymphadenopathy. Full range of motion. Lungs clear to auscultation. Heart regular rate and rhythm no murmur. Chest wall nontender. Abdomen soft. Nondistended normal bowel sounds no peritoneal signs. He has mild right flank tenderness over the soft tissue. The back he has paraspinal soft tissue muscular tenderness on the lower thoracic and lumbar spine area. There is no ecchymosis or bruising. No redness or warmth. Patient is moving all 4 extremities. The neurovascular intact. He has normal motor strength and sensation of both upper and lower extremities. Normal range of motion. No numbness. Neurologic exam is normal. Patient's exam is consistent with musculoskeletal pain and spasm. Test Results: Patient is already had extensive workup including labs, CAT scans, HIDA scans and endoscopy all of which were basically unremarkable or nondiagnostic for this problem. Emergency Department Course and Treatment: History and exam are consistent with musculoskeletal back and flank pain. Also has had prior extensive workup ruling out many other etiologies. Treatment Plan: Valium or Skelaxin for his muscle relaxation. Depending on which one his insurance will cover. 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 Motrin for pain. Warm showers and baths. Massage. Disposition: Discharge Impression: Musculoskeletal right flank and paraspinal back pain (muscle spasm) This note was generated with [employer]aya[employer] software. It may contain incorrect words, spelling, and punctuation that were not noted in review of the chart prior to signing ED Disposition - Plan for ED Patient: Chief Complaint: Abd Pain Referrals: Care Physician,No Primary [Primary Care Provider] -
[2018-05-27] MEDS: diazePAM 2 MG Tablet 10 MG PO (08:31)
--- NOTE | 2018-05-27 08:31 | ED.DCSUM_ITS ---
- ER Visit Summary Date of Service: 05/27/18 Chief Complaint: Right paraspinal and right flank pain History of Present Illness: The patient is a 57 M has had this pain intermittently for the last month. He is had extensive workup including 2 CTs, HIDA scan and upper and lower endoscopy showing polyps. No evidence of a specific cause for his pain. 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 The pain returned gradually on Sunday and is gotten worse the last 2 days. There is no associated fever. No nausea, vomiting, diarrhea or constipation. No hematuria or dysuria. Pain is worse with movement. He denies any trauma. He has never had any back history of surgery. Physical Examination: Vital signs are stable afebrile. Initial blood pressure 140/84. He is in no distress. HEENT exam unremarkable. Neck nontender no lymphadenopathy. Full range of motion. Lungs clear to auscultation. Heart regular rate and rhythm no murmur. Chest wall nontender. Abdomen soft. Nondistended normal bowel sounds no peritoneal signs. He has mild right flank tenderness over the soft tissue. The back he has paraspinal soft tissue muscular tenderness on the lower thoracic and lumbar spine area. There is no ec chymosis or bruising. No redness or warmth. Patient is moving all 4 extremities. The neurovascular intact. He has normal motor strength and sensation of both upper and lower extremities. Normal range of motion. No numbness. Neurologic exam is normal. Patient's exam is consistent with musculoskeletal pain and spasm. Test Results: Patient is already had extensive workup including labs, CAT scans, HIDA scans and endoscopy all of which were basically unremarkable or nondiagnostic for this problem. Emergency Department Course and Treatment: History and exam are consistent with musculoskeletal back and flank pain. Also has had prior extensive workup ruling out many other etiologies. Treatment Plan: Valium or Skelaxin for his muscle relaxation. Depending on which one his insurance will cover. 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 Motrin for pain. Warm showers and baths. Massage. Disposition: Discharge Impression: Musculoskeletal right flank and paraspinal back pain (muscle spasm) This note was generated with [employer] software. It may contain incorrect words, spelling, and punctuation that were not noted in review of the chart prior to signing ED Disposition - Plan for ED Patient: Chief Complaint: Abd Pain Referrals: Care Physician,No Primary [Primary Care Provider] -
--- NOTE | 2018-05-27 08:31 | ED.DEP ---
ED Disposition - Plan for ED Patient: Disposition: Home or Assisted Living Chief Complaint: Abd Pain Instructions: ED Spasm Back No Trauma Prescriptions: Diazepam [Valium] 10 mg PO Q8 PRN #20 tab PRN Reason: Muscle Spasm Metaxalone [Skelaxin] 800 mg PO TID #21 tab Referrals: Jamie Golden MD [STAFF PHYSICIAN] - 1 Week if not improving Additional Instructions: Hot shower warm bath and massage for muscle spasms. Motrin for pain and inflammation. Valium for muscle spasms or the Skelaxin. 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
== END 2018-05-27 08:49 | disposition home or self-care (01) ==
PROVIDERS: Emergency Provider Emergency Medicine
DX: M54.9 Dorsalgia, unspecified (principal); M62.830 Muscle spasm of back; K21.9 Gastro-esophageal reflux disease without esophagitis; R10.9 Unspecified abdominal pain; Z72.0 Tobacco use
CPT/HCPCS: 99283

== ENCOUNTER 2021-07-19 10:33 | Outpatient (CLI) | payer BC, SELFPAY | END 2021-07-19 23:59 | disposition short-term general hospital (02) | LOC: LABSPEC 10:35 | PROVIDERS: Referring Provider Physician Assistant Surgical; Visit Provider Physician Assistant Surgical | DX: R53.83 Other fatigue (principal) | CPT/HCPCS: 87635; U0003; U0005 ==

== ENCOUNTER 2021-08-05 09:26 | Outpatient (CLI) | payer BC, SELFPAY ==
[2021-08-05 12:07] LABS: Absolute Lymphocyte Count 2.51 X10^3/uL (0.83-4.51); Absolute Neutrophil Count 9.7 X10^3/uL (2.0-7.7); Basophil# 0.12 X10^3/uL; Basophil% 0.9 % (0-1); Eosinophil# 0.16 X10^3/uL; Eosinophils% 1.2 % (0-5); Hematocrit 44.3 % (40-54); Hemoglobin 14.8 g/dL (13.0-16.5); Lymphocyte # 2.51 X10^3/ul (0.83-4.51); Lymphocyte % 18.1 % (19-41); Mean Corp Hgb Conc 33.4 g/dL (32-36); Mean Corpuscular Hgb 32.7 pg (27.0-32.0); Mean Corpuscular Volume 97.8 fL (80-94); Mean Platelet Vol. 10.6 fl (6.2-12.0); Monocyte# 1.08 X10^3/uL; Monocyte% 7.8 % (0-10); NRBC Flagged by Analyzer 0 % (0-5); Neutrophil # 9.72 X10^3/uL (2.7-7.7); Neutrophil % 70.3 % (47-70); Platelet Count 339 K/mm3 (150-450); RBC Distribution Width CV 12.4 % (11.6-14.6); RBC Distribution Width SD 44.8 fl (35.1-43.9); Red Blood Count 4.53 M/mm3 (4.6-6.2); White Blood Count 13.8 K/mm3 (4.4-11.0)
[2021-08-05 12:25] LABS: ALB/GLOB Ratio 0.8 RATIO (0.9-2.4); AST(SGOT) 21 U/L (15-37); Alanine Aminotransfer ALT/SGPT 42 U/L (16-61); Albumin, Serum 3.1 g/dL (3.2-5.0); Alkaline Phosphatase 123 U/L (45-117); Anion Gap 6 (5-15); BUN 23 mg/dL (7-18); Calcium,Total 8.8 mg/dL (8.5-10.1); Chloride 105 mmol/L (98-107); Creatinine, Serum 1.28 mg/dL (0.70-1.30); EST Glomerular Filtration Rate 61 mL/min (>60); Est Glom Filt Rate - Afr Amer 74 mL/min (>60); Globulin 3.7 g/dL (2.2-4.2); Glucose 245 mg/dL (74-106); PSA,Total - Annual Screen 0.32 ng/mL (0.00-4.00); Potassium 4.1 mmol/L (3.5-5.1); Protein, Total 6.8 g/dL (6.4-8.2); Sodium Level 138 mmol/L (136-145); Thyroid Stim Hormone (TSH) 1.64 uIU/mL (0.358-3.74)
[2021-08-05 12:47] LABS: Hepatitis C Antibody Non-Reactive (Nonreactive)
== END 2021-08-05 23:59 | disposition short-term general hospital (02) ==
PROVIDERS: PCP Family Medicine Geriatric Medicine; Visit Provider Family Medicine Geriatric Medicine
DX: R53.83 Other fatigue (principal); Z12.5 Encounter for screening for malignant neoplasm of prostate; Z13.89 Encounter for screening for other disorder
CPT/HCPCS: 36415; 80053; 84153; 84443; 85025; 86803; G0103

== ENCOUNTER 2021-08-19 14:25 | Outpatient (CLI) | payer BC, SELFPAY ==
--- NOTE | 2021-08-19 14:29 | CT_ITS ---
STUDY: LOW DOSE CT LUNG CANCER SCREENING REASON FOR EXAM: Male, 61 years old. SMOKER RADIATION DOSAGE (If Supplied By Facility): CTDIvol = ( 4.02 ) mGy, DLP = ( 157.03 ) mGycm TECHNIQUE: No contrast was administered. Low dose technique was utilized (average mAS-38 and kVp 120). 1.25 mm axial source images with a slice interval of 1.25-mm were reconstructed in lung windows. 2.5 mm axial source images with a slice interval of 2.5-mm were reconstructed in lung windows. 5.0 mm axial source images with a slice interval of 5.0-mm were reconstructed in soft tissue windows. Nodule measured using lung windows on PACS and/or independent workstation with automated measurement of minimum and maximum diameter. Nodule measurement reported as average diameter rounded to the nearest whole number. Growth is defined as an increase ins size of greater than 1.5 mm. COMPARISON: None. NODULES: No suspicious nodules are seen. Emphysema: Focal area of groundglass appearance in the anterior lateral aspect of the lingular segment of left upper lobe. This may represent a focal area of scarring or atelectasis. Minimal scarring is also seen in the anterior medial aspect of the right middle lobe. Endobronchial lesion: None Aorta: Unremarkable. Coronary arteries: Unremarkable. Heart: Unremarkable Pulmonary artery: Unremarkable Mediastinal nodes: Small mediastinal lymph nodes. Other chest and abdominal findings: CT/Low Dose CT Lung Screening IMPRESSION: Lung-RADS category 2 - Continue annual screening with LDCT in 12 months. IMPORTANT NOTES FOR USE: ACR Lung-RADS Version 1.1 Assessment Categories Release Date: 2018 Category: Coded 0-4 bases on nodule(s) with highest degree of suspicion. Negative screen is defined as categories 1 and 2; a positive screen is defined as categories 3 and 4. Category 3 and 4A nodules that are unchanged on interval CT should be coded as category 2, and individuals returned to screening in 12 months. Category 4X: Category 3 or 4 nodules with additional imaging findings that increase the suspicion of lung cancer, such as spiculation, GGN that doubles in size in 1 year, enlarged lymph notes, etc. Category Modifiers: S (significant finding unrelated to lung cancer) Electronically Signed: Piotr Callahan MD at 15:43 EST ,
== END 2021-08-19 23:59 | disposition home or self-care (01) ==
LOC: CT 14:26
PROVIDERS: PCP Family Medicine Geriatric Medicine; Referring Provider Family Medicine Geriatric Medicine; Visit Provider Family Medicine Geriatric Medicine
DX: F17.210 Nicotine dependence, cigarettes, uncomplicated (principal)
CPT/HCPCS: 71271

== ENCOUNTER 2021-09-15 07:07 | Outpatient (CLI) | payer BC, SELFPAY ==
--- NOTE | 2021-09-15 07:09 | US_ITS ---
STUDY: SUPERFICIAL ULTRASOUND - PALPABLE LUMP REASON FOR EXAM: Male, 61 years old. SUB Q NODULE - LT ANTERIOR HIP TECHNIQUE: A superficial ultrasound was performed with real-time and static seymour-scale imaging. COMPARISON: None. FINDINGS: Sonographic evaluation of the left anterior hip shows a 2.3 x 1.4 x 0.7 cm encapsulated mass of mixed echogenicity. I suspect this most likely represents a subcutaneous lipoma but could also be sequela from trauma. There is no vascularity, posterior shadowing or associated fluid. US/Ext Non Vasc Limited/Soft Tiss IMPRESSION: Likely subcutaneous lipoma, no suspicious sonographic findings Electronically Signed: Kaleb Meyer MD at 14:18 EST ,
== END 2021-09-15 23:59 | disposition home or self-care (01) ==
LOC: US 07:08
PROVIDERS: PCP Family Medicine Geriatric Medicine; Referring Provider Family Medicine Geriatric Medicine; Visit Provider Family Medicine Geriatric Medicine
DX: R22.9 Localized swelling, mass and lump, unspecified (principal)
CPT/HCPCS: 76882

== ENCOUNTER → 2022-02-24 | Outpatient (CLI) | payer BC, SELFPAY ==
[2022-02-24 10:06] LABS: Absolute Lymphocyte Count 2.84 X10^3/uL (0.83-4.51); Absolute Neutrophil Count 8.4 X10^3/uL (2.0-7.7); Basophil# 0.15 X10^3/uL; Basophil% 1.2 % (0-1); Eosinophil# 0.18 X10^3/uL; Eosinophils% 1.4 % (0-5); Hematocrit 45.2 % (40-54); Hemoglobin 15.5 g/dL (13.0-16.5); Lymphocyte # 2.84 X10^3/ul (0.83-4.51); Lymphocyte % 22.1 % (19-41); Mean Corp Hgb Conc 34.3 g/dL (32-36); Mean Corpuscular Hgb 33.5 pg (27.0-32.0); Mean Corpuscular Volume 97.6 fL (80-94); Mean Platelet Vol. 9.8 fl (6.2-12.0); Monocyte# 1.19 X10^3/uL; Monocyte% 9.3 % (0-10); NRBC Flagged by Analyzer 0 % (0-5); Neutrophil # 8.39 X10^3/uL (2.7-7.7); Neutrophil % 65.4 % (47-70); Platelet Count 324 K/mm3 (150-450); RBC Distribution Width CV 12.3 % (11.6-14.6); RBC Distribution Width SD 44.4 fl (35.1-43.9); Red Blood Count 4.63 M/mm3 (4.6-6.2); White Blood Count 12.8 K/mm3 (4.4-11.0)
[2022-02-24 11:00] LABS: AST(SGOT) 12 U/L (15-37); Alanine Aminotransfer ALT/SGPT 35 U/L (16-61); Albumin, Serum 3.6 g/dL (3.2-5.0); Alkaline Phosphatase 106 U/L (45-117); Anion Gap 6 (5-15); BUN 20 mg/dL (7-18); BUN/Creat Ratio 21.3 RATIO (10-20); Calcium,Total 8.7 mg/dL (8.5-10.1); Chloride 102 mmol/L (98-107); Creatinine, Serum 0.94 mg/dL (0.70-1.30); EST Glomerular Filtration Rate 87 mL/min (>60); Est Glom Filt Rate - Afr Amer 105 mL/min (>60); Globulin 3.5 g/dL (2.2-4.2); Glucose 146 mg/dL (74-106); Potassium 4.3 mmol/L (3.5-5.1); Protein, Total 7.1 g/dL (6.4-8.2); Sodium Level 135 mmol/L (136-145); Thyroid Stim Hormone (TSH) 2.68 uIU/mL (0.358-3.74)
== END | disposition home or self-care (01) ==
LOC: LAB 09:49
PROVIDERS: PCP Family Medicine Geriatric Medicine; Visit Provider Family Medicine Geriatric Medicine
DX: E11.65 Type 2 diabetes mellitus with hyperglycemia (principal); R53.83 Other fatigue
CPT/HCPCS: 36415; 80053; 84443; 85025

== ENCOUNTER → 2022-05-26 | Outpatient (CLI) | payer BC, SELFPAY ==
[2022-05-26 11:05] LABS: Absolute Lymphocyte Count 1.92 X10^3/uL (0.83-4.51); Absolute Neutrophil Count 7.4 X10^3/uL (2.0-7.7); Basophil# 0.13 X10^3/uL; Basophil% 1.2 % (0-1); Eosinophil# 0.14 X10^3/uL; Eosinophils% 1.3 % (0-5); Hematocrit 49.5 % (40-54); Hemoglobin 16.8 g/dL (13.0-16.5); Lymphocyte # 1.92 X10^3/ul (0.83-4.51); Lymphocyte % 18.1 % (19-41); Mean Corp Hgb Conc 33.9 g/dL (32-36); Mean Corpuscular Hgb 32.9 pg (27.0-32.0); Mean Corpuscular Volume 97.1 fL (80-94); Mean Platelet Vol. 10.1 fl (6.2-12.0); Monocyte# 0.96 X10^3/uL; Monocyte% 9.1 % (0-10); NRBC Flagged by Analyzer 0 % (0-5); Neutrophil % 69.9 % (47-70); Platelet Count 370 K/mm3 (150-450); RBC Distribution Width SD 43.1 fl (35.1-43.9); White Blood Count 10.6 K/mm3 (4.4-11.0)
[2022-05-26 11:44] LABS: ALB/GLOB Ratio 0.9 RATIO (0.9-2.4); AST(SGOT) 18 U/L (15-37); Alanine Aminotransfer ALT/SGPT 27 U/L (16-61); Albumin, Serum 3.7 g/dL (3.2-5.0); Alkaline Phosphatase 122 U/L (45-117); Anion Gap 7 (5-15); BUN 12 mg/dL (7-18); BUN/Creat Ratio 12.5 RATIO (10-20); Calcium,Total 9.7 mg/dL (8.5-10.1); Chloride 102 mmol/L (98-107); Creatinine, Serum 0.96 mg/dL (0.70-1.30); EST Glomerular Filtration Rate 85 mL/min (>60); Est Glom Filt Rate - Afr Amer 102 mL/min (>60); Globulin 3.9 g/dL (2.2-4.2); Glucose 114 mg/dL (74-106); Potassium 4.3 mmol/L (3.5-5.1); Protein, Total 7.6 g/dL (6.4-8.2); Sodium Level 136 mmol/L (136-145); Thyroid Stim Hormone (TSH) 2.42 uIU/mL (0.358-3.74)
== END | disposition home or self-care (01) ==
LOC: LAB 10:38
PROVIDERS: PCP Family Medicine Geriatric Medicine; Referring Provider Family Medicine Geriatric Medicine; Visit Provider Family Medicine Geriatric Medicine
DX: R53.83 Other fatigue (principal)
CPT/HCPCS: 36415; 80053; 84443; 85025

== ENCOUNTER → 2022-08-25 | Outpatient (CLI) | payer BC, SELFPAY ==
[2022-08-25 10:48] LABS: Absolute Neutrophil Count 6.1 X10^3/uL (2.0-7.7); Basophil# 0.15 X10^3/uL; Basophil% 1.5 % (0-1); Eosinophil# 0.21 X10^3/uL; Eosinophils% 2.1 % (0-5); Hemoglobin 15.4 g/dL (13.0-16.5); Lymphocyte % 24.1 % (19-41); Mean Corp Hgb Conc 34.2 g/dL (32-36); Mean Corpuscular Hgb 33.6 pg (27.0-32.0); Monocyte# 0.98 X10^3/uL; Monocyte% 9.9 % (0-10); NRBC Flagged by Analyzer 0 % (0-5); Neutrophil # 6.14 X10^3/uL (2.7-7.7); Neutrophil % 61.8 % (47-70); Platelet Count 316 K/mm3 (150-450); RBC Distribution Width SD 46.4 fl (35.1-43.9); Red Blood Count 4.59 M/mm3 (4.6-6.2); White Blood Count 9.9 K/mm3 (4.4-11.0)
[2022-08-25 11:21] LABS: AST(SGOT) 12 U/L (15-37); Alanine Aminotransfer ALT/SGPT 25 U/L (16-61); Albumin, Serum 3.4 g/dL (3.2-5.0); Alkaline Phosphatase 107 U/L (45-117); Anion Gap 7 (5-15); BUN 20 mg/dL (7-18); BUN/Creat Ratio 19.4 RATIO (10-20); Calcium,Total 9.1 mg/dL (8.5-10.1); Chloride 107 mmol/L (98-107); Creatinine, Serum 1.03 mg/dL (0.70-1.30); EST Glomerular Filtration Rate 78 mL/min (>60); Est Glom Filt Rate - Afr Amer 94 mL/min (>60); Globulin 3.3 g/dL (2.2-4.2); Glucose 130 mg/dL (74-106); Potassium 4.3 mmol/L (3.5-5.1); Protein, Total 6.7 g/dL (6.4-8.2); Sodium Level 142 mmol/L (136-145); Thyroid Stim Hormone (TSH) 1.65 uIU/mL (0.358-3.74)
== END | disposition home or self-care (01) ==
LOC: POLAB3 09:43
PROVIDERS: PCP Family Medicine Geriatric Medicine; Visit Provider Family Medicine Geriatric Medicine
DX: R53.83 Other fatigue (principal); E11.65 Type 2 diabetes mellitus with hyperglycemia
CPT/HCPCS: 36415; 80053; 84443; 85025

== ENCOUNTER → 2023-02-23 | Outpatient (CLI) | payer BC, SELFPAY ==
[2023-02-23 12:22] LABS: Absolute Lymphocyte Count 2.32 X10^3/uL (0.83-4.51); Basophil# 0.14 X10^3/uL; Basophil% 1.4 % (0-1); Eosinophil# 0.28 X10^3/uL; Eosinophils% 2.9 % (0-5); Hemoglobin 14.9 g/dL (13.0-16.5); Lymphocyte # 2.32 X10^3/ul (0.83-4.51); Lymphocyte % 23.8 % (19-41); Mean Corp Hgb Conc 33.1 g/dL (32-36); Mean Corpuscular Hgb 33.6 pg (27.0-32.0); Mean Corpuscular Volume 101.6 fL (80-94); Monocyte# 0.94 X10^3/uL; Monocyte% 9.6 % (0-10); NRBC Flagged by Analyzer 0 % (0-5); Neutrophil % 61.5 % (47-70); Platelet Count 321 K/mm3 (150-450); RBC Distribution Width CV 12.6 % (11.6-14.6); RBC Distribution Width SD 46.9 fl (35.1-43.9); Red Blood Count 4.43 M/mm3 (4.6-6.2); White Blood Count 9.8 K/mm3 (4.4-11.0)
[2023-02-23 13:03] LABS: AST(SGOT) 14 U/L (15-37); Alanine Aminotransfer ALT/SGPT 30 U/L (16-61); Albumin, Serum 3.4 g/dL (3.2-5.0); Alkaline Phosphatase 131 U/L (45-117); Anion Gap 5 (5-15); BUN 18 mg/dL (7-18); BUN/Creat Ratio 19.5 RATIO (10-20); Calcium,Total 8.9 mg/dL (8.5-10.1); Chloride 109 mmol/L (98-107); Creatinine, Serum 0.92 mg/dL (0.70-1.30); EST Glomerular Filtration Rate 89 mL/min (>60); Est Glom Filt Rate - Afr Amer 107 mL/min (>60); Globulin 3.4 g/dL (2.2-4.2); Glucose 168 mg/dL (74-106); Potassium 4.5 mmol/L (3.5-5.1); Protein, Total 6.8 g/dL (6.4-8.2); Sodium Level 138 mmol/L (136-145); Thyroid Stim Hormone (TSH) 2.02 uIU/mL (0.358-3.74)
== END | disposition home or self-care (01) ==
PROVIDERS: PCP Family Medicine Geriatric Medicine; Visit Provider Family Medicine Geriatric Medicine
DX: E11.65 Type 2 diabetes mellitus with hyperglycemia (principal); R53.83 Other fatigue
CPT/HCPCS: 36415; 80053; 84443; 85025

== ENCOUNTER → 2023-06-27 | Outpatient (CLI) | payer BC, SELFPAY | END | disposition home or self-care (01) | LOC: PSN 08:44 | PROVIDERS: PCP Family Medicine Geriatric Medicine; Visit Provider Family Medicine Geriatric Medicine | DX: R68.83 Chills (without fever) (principal) | CPT/HCPCS: 87635; 87804; 87807; C9803 ==

== ENCOUNTER → 2023-07-25 | Outpatient (CLI) | payer BC, SELFPAY ==
--- OUTSIDE RECORDS SUMMARY | 2023-07-25 09:41 | XMS RPT_ITS | CCD ---
Author Name Unknown Address [address] [place] [address] Organization [facility] Care Team Providers Care Data Center Operator Name Role Phone TONY MAHONEY Attending TONY Hernandez Admitting Unavailable TONY MAHONEY Attending Unavailable TONY MAHONEY Referring Unavailable NUVIA VERNON Attending Unavailable ABE FRANCIS (TEACHER ADVISOR) Referring Unavailable JOSE D WHITMAN (RENEE) Referring Unava ilable Problems Active Problems Problem Classification Problem Date Documented Da te Episodic/Chronic Other ear and sense organ disorders (1 source) Impacted cerumen, right ear; Translations: [Impacted cerumen, right ear] Onset: 06-17-2018 Episodic Other lower respiratory disease (1 source) Cough; Translations: [Cough] Onset: 06-17-2018 Episodic Other upper respiratory infections (1 source) Acute sinusitis, unspecified; Translations: [Acute sinusitis, unspecified] Onset: 06-17-2018 Episodic Past or Other Problems Problem Classification Problem Date Documented Da te Episodic/Chronic Other gastrointestinal disorders (1 source) Constipation, unspecified; Translations: [Constipation, unspecified] Onset: 05-17-2018 Episodic Results Test Name Value Interpretation Reference Range Facil ity Encounters Encounter Date Encounter Type Care Provider Facility Start: 09-02-2018 End: 09-03-2018 Patient encounter procedure JOSE D (RENEE) ANTONETTE [facility] Start: 07-29-2018 End: 07-30-2018 Patient encounter procedure ABE (RENEE) PENNY [facility] Start: 06-17-2018 End: 06-18-2018 Patient encounter procedure NUVIA VERNON [facility] Start: 05-17-2018 End: 05-17-2018 Patient encounter procedure TONY MAHONEY [facility] Start: 04-16-2018 End: 04-17-2018 Patient encounter procedure TONY MAHONEY [facility] Summary Purpose Family History No Family History Records Found Advance Directives No Advanced Directives Records Found Procedure Findings Note Operative Note (Enc) (GENSWS ) Progress Notes: Tony Mahoney MD 04/13/2018 9:54 AM Signed OPERATIVE NOTATION FOR [facility] SURGICAL PROCEDURE. April 10, 2018 Lawson Yi 1960 [id number] male PROCEDURE: EGD WITH BIOPSY - [id number] SURGEON: Josue Mahoney M.D. FACS INSPECTOR CLIP ON SUNGLASSES: None DEPT: PROVIDER: [id number] Mahoney MD POS: [id number] DIAGNOSIS: (R10.13) Epigastric pain (primary encounter diagnosis) ASA CLASS: 2 - mild FINDINGS: COMPLICATIONS: None PMHx - No past medical history on file. COMORBIDITIES - None Post Op Occurrences - None Wound Classification - Clean Contaminated Operative note dictated in the [facility] dictation system. Tony Mahoney MD Encounter Status:Closed by TONY MAHONEY MD on 04/13/18 Additional Source Comments (unrecognized sect ion and content) No Status Records Found INFORMATION SOURCE (unrecogn ized section and content) FOR RECORDS PERTAINING TO PATIENTS WHO ARE OR HAVE BEEN ENROLLED IN A CHEMICAL DEPENDENCY/SUBSTANCEABUSE PROGRAM, SOME INFORMATION MAY BE OMITTED. This clinical summary was aggregated from multiple sources. Caution should be exercised in using it in the provision of clinical care. This summary normalizes information from multiple sources, and as a consequence, information in this document may materially change the coding, format and clinical context of patient data. In addition, data may be omitted in some cases. CLINICAL DECISIONS SHOULD BE BASED ON THE PRIMARY CLINICAL RECORDS. [facility] [employer] [facility]. provides no warranty or guarantee of the accuracy or completeness of information in this document.
[2023-07-25 10:40] LABS: Absolute Lymphocyte Count 2.39 X10^3/uL (0.83-4.51); Absolute Neutrophil Count 6.2 X10^3/uL (2.0-7.7); Basophil# 0.15 X10^3/uL; Basophil% 1.5 % (0-1); Eosinophil# 0.28 X10^3/uL; Eosinophils% 2.8 % (0-5); Hematocrit 40.4 % (40-54); Hemoglobin 13.1 g/dL (13.0-16.5); Lymphocyte # 2.39 X10^3/ul (0.83-4.51); Lymphocyte % 23.6 % (19-41); Mean Corp Hgb Conc 32.4 g/dL (32-36); Mean Corpuscular Hgb 32.8 pg (27.0-32.0); Mean Corpuscular Volume 101.3 fL (80-94); Mean Platelet Vol. 10.8 fl (6.2-12.0); Monocyte% 9.9 % (0-10); NRBC Flagged by Analyzer 0 % (0-5); Neutrophil # 6.22 X10^3/uL (2.7-7.7); Neutrophil % 61.4 % (47-70); Platelet Count 315 K/mm3 (150-450); RBC Distribution Width CV 13.2 % (11.6-14.6); RBC Distribution Width SD 49.1 fl (35.1-43.9); Red Blood Count 3.99 M/mm3 (4.6-6.2); White Blood Count 10.1 K/mm3 (4.4-11.0)
[2023-07-25 11:27] LABS: AST(SGOT) 14 U/L (15-37); Alanine Aminotransfer ALT/SGPT 25 U/L (16-61); Albumin, Serum 3.3 g/dL (3.2-5.0); Alkaline Phosphatase 95 U/L (45-117); Anion Gap 6 (5-15); BUN 11 mg/dL (7-18); Calcium,Total 8.9 mg/dL (8.5-10.1); Chloride 108 mmol/L (98-107); Creatinine, Serum 0.91 mg/dL (0.70-1.30); EST Glomerular Filtration Rate 89 mL/min (>60); Est Glom Filt Rate - Afr Amer 108 mL/min (>60); Globulin 3.3 g/dL (2.2-4.2); Glucose 111 mg/dL (74-106); Potassium 3.8 mmol/L (3.5-5.1); Protein, Total 6.6 g/dL (6.4-8.2); Sodium Level 139 mmol/L (136-145); Thyroid Stim Hormone (TSH) 2.89 uIU/mL (0.358-3.74)
== END | disposition home or self-care (01) ==
LOC: POLAB3 09:06
PROVIDERS: PCP Family Medicine Geriatric Medicine; Visit Provider Family Medicine Geriatric Medicine
DX: E11.65 Type 2 diabetes mellitus with hyperglycemia (principal); R53.83 Other fatigue
CPT/HCPCS: 36415; 80053; 84443; 85025

== ENCOUNTER → 2023-10-17 | Outpatient (CLI) | payer BC, SELFPAY ==
[2023-10-17 11:15] LABS: Absolute Lymphocyte Count 2.47 X10^3/uL (0.83-4.51); Basophil# 0.09 X10^3/uL; Basophil% 0.7 % (0-1); Eosinophil# 0.12 X10^3/uL; Eosinophils% 0.9 % (0-5); Hematocrit 43.3 % (40-54); Hemoglobin 14.5 g/dL (13.0-16.5); Lymphocyte # 2.47 X10^3/ul (0.83-4.51); Mean Corp Hgb Conc 33.5 g/dL (32-36); Mean Corpuscular Hgb 32.9 pg (27.0-32.0); Mean Corpuscular Volume 98.2 fL (80-94); Mean Platelet Vol. 10.2 fl (6.2-12.0); Monocyte# 1.25 X10^3/uL; Monocyte% 9.6 % (0-10); NRBC Flagged by Analyzer 0 % (0-5); Neutrophil # 8.96 X10^3/uL (2.7-7.7); Neutrophil % 68.8 % (47-70); Platelet Count 380 K/mm3 (150-450); RBC Distribution Width CV 13.1 % (11.6-14.6); RBC Distribution Width SD 47.7 fl (35.1-43.9); Red Blood Count 4.41 M/mm3 (4.6-6.2)
[2023-10-17 11:41] LABS: ALB/GLOB Ratio 0.8 RATIO (0.9-2.4); AST(SGOT) 11 U/L (15-37); Alanine Aminotransfer ALT/SGPT 23 U/L (16-61); Albumin, Serum 3.3 g/dL (3.2-5.0); Alkaline Phosphatase 114 U/L (45-117); Anion Gap 7 (5-15); BUN 19 mg/dL (7-18); BUN/Creat Ratio 13.6 RATIO (10-20); Calcium,Total 9.2 mg/dL (8.5-10.1); Chloride 102 mmol/L (98-107); EST Glomerular Filtration Rate 55 mL/min (>60); Est Glom Filt Rate - Afr Amer 66 mL/min (>60); Globulin 4.1 g/dL (2.2-4.2); Glucose 141 mg/dL (74-106); PSA,Total - Annual Screen 0.34 ng/mL (0.00-4.00); Potassium 4.3 mmol/L (3.5-5.1); Protein, Total 7.4 g/dL (6.4-8.2); Sodium Level 135 mmol/L (136-145); Thyroid Stim Hormone (TSH) 2.99 uIU/mL (0.358-3.74)
== END | disposition home or self-care (01) ==
LOC: POLAB3 09:11
PROVIDERS: PCP Family Medicine Geriatric Medicine; Visit Provider Family Medicine Geriatric Medicine
DX: Z12.5 Encounter for screening for malignant neoplasm of prostate (principal); E11.65 Type 2 diabetes mellitus with hyperglycemia; R53.83 Other fatigue
CPT/HCPCS: 36415; 80053; 84153; 84443; 85025; G0103

== ENCOUNTER → 2023-10-18 | Outpatient (CLI) | payer BC, SELFPAY | END | disposition home or self-care (01) | LOC: PSN 08:05 | PROVIDERS: PCP Family Medicine Geriatric Medicine; Referring Provider Family Medicine Geriatric Medicine; Visit Provider Family Medicine Geriatric Medicine | DX: R68.83 Chills (without fever) (principal) | CPT/HCPCS: 87631 ==

== ENCOUNTER → 2024-04-23 | Outpatient (CLI) | payer BC, SELFPAY ==
[2024-04-23 08:58] LABS: Absolute Neutrophil Count 5.5 X10^3/uL (2.0-7.7); Basophil# 0.13 X10^3/uL; Basophil% 1.4 % (0-1); Eosinophil# 0.22 X10^3/uL; Eosinophils% 2.4 % (0-5); Hematocrit 41.3 % (40-54); Hemoglobin 13.7 g/dL (13.0-16.5); Lymphocyte % 23.4 % (19-41); Mean Corp Hgb Conc 33.2 g/dL (32-36); Mean Corpuscular Hgb 31.9 pg (27.0-32.0); Mean Corpuscular Volume 96.3 fL (80-94); Mean Platelet Vol. 9.7 fl (6.2-12.0); Monocyte# 0.99 X10^3/uL; NRBC Flagged by Analyzer 0 % (0-5); Neutrophil # 5.47 X10^3/uL (2.7-7.7); Platelet Count 361 K/mm3 (150-450); RBC Distribution Width CV 13.2 % (11.6-14.6); RBC Distribution Width SD 47.4 fl (35.1-43.9); Red Blood Count 4.29 M/mm3 (4.6-6.2)
[2024-04-23 10:10] LABS: ALB/GLOB Ratio 0.9 RATIO (0.9-2.4); AST(SGOT) 10 U/L (15-37); Alanine Aminotransfer ALT/SGPT 18 U/L (16-61); Albumin, Serum 3.3 g/dL (3.2-5.0); Alkaline Phosphatase 121 U/L (45-117); Anion Gap 6 (5-15); BUN 18 mg/dL (7-18); BUN/Creat Ratio 18.9 RATIO (10-20); Calcium,Total 9.4 mg/dL (8.5-10.1); Chloride 105 mmol/L (98-107); Creatinine, Serum 0.95 mg/dL (0.70-1.30); EST Glomerular Filtration Rate 85 mL/min (>60); Est Glom Filt Rate - Afr Amer 103 mL/min (>60); Globulin 3.7 g/dL (2.2-4.2); Glucose 103 mg/dL (74-106); Potassium 4.4 mmol/L (3.5-5.1); Sodium Level 136 mmol/L (136-145)
== END | disposition home or self-care (01) ==
LOC: POLAB3 08:49
PROVIDERS: PCP Family Medicine Geriatric Medicine; Visit Provider Family Medicine Geriatric Medicine
DX: E11.65 Type 2 diabetes mellitus with hyperglycemia (principal); R53.83 Other fatigue
CPT/HCPCS: 36415; 80053; 84443; 85025

== ENCOUNTER → 2024-06-04 | Outpatient (CLI) | payer BC, SELFPAY | END | disposition home or self-care (01) | LOC: POLAB3 10:59 | PROVIDERS: PCP Family Medicine Geriatric Medicine; Visit Provider Family Medicine Geriatric Medicine | DX: R68.83 Chills (without fever) (principal) | CPT/HCPCS: 36415; 87631 ==

== ENCOUNTER → 2024-10-17 | Outpatient (CLI) | payer BC, SELFPAY ==
[2024-10-17 10:52] LABS: Absolute Lymphocyte Count 1.79 X10^3/uL (0.83-4.51); Absolute Neutrophil Count 7.7 X10^3/uL (2.0-7.7); Basophil# 0.12 X10^3/uL; Basophil% 1.1 % (0-1); Eosinophil# 0.29 X10^3/uL; Eosinophils% 2.6 % (0-5); Hematocrit 43.6 % (40-54); Hemoglobin 14.6 g/dL (13.0-16.5); Lymphocyte # 1.79 X10^3/ul (0.83-4.51); Lymphocyte % 16.2 % (19-41); Mean Corp Hgb Conc 33.5 g/dL (32-36); Mean Corpuscular Hgb 32.7 pg (27.0-32.0); Mean Corpuscular Volume 97.8 fL (80-94); Monocyte# 1.17 X10^3/uL; Monocyte% 10.6 % (0-10); NRBC Flagged by Analyzer 0 % (0-5); Neutrophil # 7.65 X10^3/uL (2.7-7.7); Platelet Count 329 K/mm3 (150-450); RBC Distribution Width CV 13.5 % (11.6-14.6); RBC Distribution Width SD 48.6 fl (35.1-43.9); Red Blood Count 4.46 M/mm3 (4.6-6.2); White Blood Count 11.1 K/mm3 (4.4-11.0)
[2024-10-17 12:52] LABS: ALB/GLOB Ratio 1.5 RATIO (0.9-2.4); AST(SGOT) 17 U/L (<=37); Alanine Aminotransfer ALT/SGPT 16 U/L (<=46); Albumin, Serum 4.2 g/dL (3.4-4.8); Alkaline Phosphatase 119 U/L (40-129); Anion Gap 11 (5-15); BUN 15 mg/dL (4-19); BUN/Creat Ratio 16.7 RATIO (10-20); Calcium,Total 9.3 mg/dL (7.6-11.0); Carbon Dioxide 24.7 mmol/L (21.0-32.0); Chloride 105 mmol/L (98-108); EST Glomerular Filtration Rate 96 (>60); Globulin 2.9 g/dL (2.2-4.2); Glucose 119 mg/dL (70-99); PSA,Total - Annual Screen 0.47 ng/mL (0.02-4.00); Potassium 4.6 mmol/L (3.3-5.1); Protein, Total 7.1 g/dL (5.9-8.4); Sodium Level 140 mmol/L (133-145); Total Bilirubin 0.39 mg/dL (0.00-1.30)
== END | disposition home or self-care (01) ==
PROVIDERS: PCP Family Medicine Geriatric Medicine; Referring Provider Family Medicine Geriatric Medicine; Visit Provider Family Medicine Geriatric Medicine
DX: E11.65 Type 2 diabetes mellitus with hyperglycemia (principal); R53.83 Other fatigue; Z12.5 Encounter for screening for malignant neoplasm of prostate
CPT/HCPCS: 36415; 80053; 84153; 84443; 85025; G0103

== ENCOUNTER → 2025-03-11 | Outpatient (CLI) | payer BC, SELFPAY | END | disposition home or self-care (01) | LOC: POLAB3 14:42 | PROVIDERS: PCP Family Medicine Geriatric Medicine; Visit Provider Family Medicine Geriatric Medicine | DX: R33.9 Retention of urine, unspecified (principal); R39.11 Hesitancy of micturition | CPT/HCPCS: 87086 ==

== ENCOUNTER → 2025-04-27 | Outpatient (CLI) | payer BC, SELFPAY ==
[2025-04-27 09:39] LABS: Hematocrit 40.7 % (40-54); Hemoglobin 14.0 g/dL (13.0-16.5); Immature Granulocytes Count 0.050 X10^3/uL (0.0-0.0); Mean Corp Hgb Conc 34.4 g/dL (32-36); Mean Corpuscular Volume 96.0 fL (80-94); Mean Platelet Vol. 10.2 fl (6.2-12.0); NRBC Flagged by Analyzer 0 % (0-5); Platelet Count 304 K/mm3 (150-450); RBC Distribution Width CV 13.4 % (11.6-14.6); RBC Distribution Width SD 46.9 fl (35.1-43.9); Red Blood Count 4.24 M/mm3 (4.6-6.2); White Blood Count 8.0 K/mm3 (4.4-11.0)
[2025-04-27 10:47] LABS: AST(SGOT) 16 U/L (<=37); Alanine Aminotransfer ALT/SGPT 18 U/L (<=46); Albumin, Serum 4.0 g/dL (3.4-4.8); Alkaline Phosphatase 98 U/L (40-129); Anion Gap 8 (5-15); BUN 16 mg/dL (4-19); BUN/Creat Ratio 18.7 RATIO (10-20); Calcium,Total 9.1 mg/dL (7.6-11.0); Carbon Dioxide 26.7 mmol/L (21.0-32.0); Chloride 102 mmol/L (98-108); Globulin 2.5 g/dL (2.2-4.2); Glucose 126 mg/dL (70-99); Potassium 4.5 mmol/L (3.3-5.1)
[2025-04-27 16:55] LABS: Xtra Tube Kwok EXTRA TUBE
== END | disposition home or self-care (01) ==
LOC: POLAB3 09:26
PROVIDERS: PCP Family Medicine Geriatric Medicine; Visit Provider Family Medicine Geriatric Medicine
DX: E11.22 Type 2 diabetes mellitus with diabetic chronic kidney disease (principal); N18.9 Chronic kidney disease, unspecified; R53.83 Other fatigue
CPT/HCPCS: 36415; 80053; 84443; 85025